=== PATIENT | female | born 1960 | race Hispanic/Latino ===

== ENCOUNTER → 2024-01-07 | Emergency (ER) | payer SELFPAY ==
[~2024-01-07] MED LIST: FAMOTIDINE 20 MG/2 ML VIAL IV ONE; KETOROLAC 30 MG/ML INJ ONE; MAGNESIUM SULFATE 1 gm IVPB 1 GM/100 ML BAG IV ONE; MORPHINE 2 MG/ML SYR ONE; MORPHINE 4 MG/ML SYR ONE; NA CHLORIDE 0.9% 1,000 ML ONE; ONDANSETRON 4 MG/2 ML VIAL ONE; TAMSULOSIN 0.4 MG SR CAP ONE
--- OUTSIDE RECORDS SUMMARY | 2024-01-07 06:02 | XMS REPORT | Continuity of Care Document ---
Author Name Unknown Address [address] [facility] [address] [place] [address] [facility] Address [address] [facility] [address] [place] [address] Care Team Providers Care Charge Account Clerk Name Role Phone Marquis Hanson Primary Care Physician CASSI LANE Attending Clinician Unavailab CASSI Moore Admitting Clinician Unavailab le Allergies, Adverse Reactions, Alerts Allergy Name Allergy Type Status Severity Reaction(s) Onset Date Inactive Date Treating Clinician Comments Source NO KNOWN ALLERGIE S Drug Class Active [facility] Medications Ordered Medication Name Filled Medication Name Start Date Stop Date Current Medication? Ordering Clinician Indication Dosage Frequency Signature (SIG) Comments Components Source Cipro 500 mg tablet 11-27 00:00: 00 No 1mg Cipro 500 mg tablet 11-27 00:00: 00 No 1mg Cipro 500 mg tablet 11-27 00:00: 00 No 1mg Vital Signs Vital Name Observation Time Observation Value Comments S ource BP Systolic 2022-08-13 08:18:00 148 mm[Hg] BP Diastolic 2022-08-13 08:18:00 82 mm[Hg] Weight Measured 2022-08-13 08:18:00 126.40 pounds Height Measured 2022-08-13 08:18:00 58.00 inches Body Temperature 2022-08-13 08:18:00 97.40 degrees Heart Rate 2022-08-13 08:18:00 67.00 /min Respiratory Rate 2022-08-13 08:18:00 16.00 /min BP Systolic 2022-06-17 08:19:00 132 mm[Hg] BP Diastolic 2022-06-17 08:19:00 84 mm[Hg] Weight Measured 2022-06-17 08:19:00 126.40 pounds Height Measured 2022-06-17 08:19:00 58.00 inches Body Temperature 2022-06-17 08:19:00 98.30 degrees Heart Rate 2022-06-17 08:19:00 59.00 /min Respiratory Rate 2022-06-17 08:19:00 18.00 /min BP Systolic 2022-06-10 08:55:00 143 mm[Hg] BP Diastolic 2022-06-10 08:55:00 81 mm[Hg] Weight Measured 2022-06-10 08:55:00 126.80 pounds Height Measured 2022-06-10 08:55:00 58.00 inches Body Temperature 2022-06-10 08:55:00 98.10 degrees Heart Rate 2022-06-10 08:55:00 60.00 /min Respiratory Rate 2022-06-10 08:55:00 18.00 /min BP Systolic 2019-09-01 13:21:00 122 mm[Hg] BP Diastolic 2019-09-01 13:21:00 82 mm[Hg] Weight Measured 2019-09-01 13:21:00 126.80 pounds Height Measured 2019-09-01 13:21:00 58.00 inches Body Temperature 2019-09-01 13:21:00 98.60 degrees Heart Rate 2019-09-01 13:21:00 95.00 /min Respiratory Rate 2019-09-01 13:21:00 16.00 /min BP Systolic 2018-05-13 14:37:00 125 mm[Hg] BP Diastolic 2018-05-13 14:37:00 77 mm[Hg] Weight Measured 2018-05-13 14:37:00 130.00 pounds Height Measured 2018-05-13 14:37:00 58.00 inches Body Temperature 2018-05-13 14:37:00 98.30 degrees Heart Rate 2018-05-13 14:37:00 73.00 /min Respiratory Rate 2018-05-13 14:37:00 16.00 /min BP Systolic 2017-04-23 14:34:00 BP Diastolic 2017-04-23 14:34:00 Weight Measured 2017-04-23 14:34:00 Height Measured 2017-04-23 14:34:00 Body Temperature 2017-04-23 14:34:00 Heart Rate 2017-04-23 14:34:00 Respiratory Rate 2017-04-23 14:34:00 BP Systolic 2017-04-23 10:40:00 124 mm[Hg] BP Diastolic 2017-04-23 10:40:00 77 mm[Hg] Weight Measured 2017-04-23 10:40:00 120.00 pounds Height Measured 2017-04-23 10:40:00 58.00 inches Body Temperature 2017-04-23 10:40:00 98.00 degrees Heart Rate 2017-04-23 10:40:00 69.00 /min Respiratory Rate 2017-04-23 10:40:00 16.00 /min BP Systolic 2015-12-01 16:01:00 BP Diastolic 2015-12-01 16:01:00 Weight Measured 2015-12-01 16:01:00 Height Measured 2015-12-01 16:01:00 Body Temperature 2015-12-01 16:01:00 Heart Rate 2015-12-01 16:01:00 Respiratory Rate 2015-12-01 16:01:00 BP Systolic 2015-11-27 10:24:00 131 mm[Hg] BP Diastolic 2015-11-27 10:24:00 81 mm[Hg] Weight Measured 2015-11-27 10:24:00 118.40 pounds Height Measured 2015-11-27 10:24:00 58.00 inches Body Temperature 2015-11-27 10:24:00 16.00 degrees Heart Rate 2015-11-27 10:24:00 67.00 /min Respiratory Rate 2015-11-27 10:24:00 17.00 /min BP Systolic 2015-11-27 10:07:00 131 mm[Hg] BP Diastolic 2015-11-27 10:07:00 81 mm[Hg] Weight Measured 2015-11-27 10:07:00 118.40 pounds Height Measured 2015-11-27 10:07:00 58.00 inches Body Temperature 2015-11-27 10:07:00 16.00 degrees Heart Rate 2015-11-27 10:07:00 67.00 /min Respiratory Rate 2015-11-27 10:07:00 17.00 /min Respiratory Rate 2015-09-26 11:26:00 14.00 /min BP Systolic 2015-09-26 11:26:00 129 mm[Hg] BP Diastolic 2015-09-26 11:26:00 79 mm[Hg] Weight Measured 2015-09-26 11:26:00 118.20 pounds Height Measured 2015-09-26 11:26:00 58.00 inches Body Temperature 2015-09-26 11:26:00 97.90 degrees Heart Rate 2015-09-26 11:26:00 62.00 /min BP Systolic 2015-09-12 11:09:00 126 mm[Hg] BP Diastolic 2015-09-12 11:09:00 74 mm[Hg] Weight Measured 2015-09-12 11:09:00 117.00 pounds Height Measured 2015-09-12 11:09:00 58.00 inches Body Temperature 2015-09-12 11:09:00 97.70 degrees Heart Rate 2015-09-12 11:09:00 59.00 /min Respiratory Rate 2015-09-12 11:09:00 14.00 /min Procedures Procedure Date / Time Performed Performing Clinicia n Source 51015 Ecg Routine Ecg W/leas t 12 Lds W/i r 2017-04-23 00:00:00 Plan of Care Planned Activity Planned Date Details Comments Source Goal Plan of Care Note [code = 65338-1] Goal Plan of Care Note [code = 76664-4] Goal Plan of Care Note [code = 50554-7] Goal Plan of Care Note [code = 64423-3] Goal Plan of Care Note [code = 10456-3] Goal Plan of Care Note [code = 28477-7] Goal Plan of Care Note [code = 63241-9] Goal Plan of Care Note [code = 83858-7] Goal Plan of Care Note [code = 39882-7] Goal Plan of Care Note [code = 54463-1] Goal Plan of Care Note [code = 32475-4] Goal Plan of Care Note [code = 54381-6] Goal Plan of Care Note [code = 49630-6] Goal Plan of Care Note [code = 91809-4] Goal Plan of Care Note [code = 26796-3] Goal Plan of Care Note [code = 83415-4] Goal Plan of Care Note [code = 81766-6] Goal Plan of Care Note [code = 30941-0] Goal Plan of Care Note [code = 03388-9] Goal Plan of Care Note [code = 76041-6] Goal Plan of Care Note [code = 37132-5] Goal Plan of Care Note [code = 38269-9] Goal Plan of Care Note [code = 17055-7] Goal Plan of Care Note [code = 88228-2] Goal Plan of Care Note [code = 28819-4] Goal Plan of Care Note [code = 38163-0] Goal Plan of Care Note [code = 03822-1] Goal Plan of Care Note [code = 51137-2] Goal Plan of Care Note [code = 42026-2] Goal Plan of Care Note [code = 68301-8] Goal Plan of Care Note [code = 24180-5] Goal Plan of Care Note [code = 72229-9] Goal Plan of Care Note [code = 47431-7] Goal Plan of Care Note [code = 02991-4] Goal Plan of Care Note [code = 58169-5] Goal Plan of Care Note [code = 95659-2] Goal Plan of Care Note [code = 64229-5] Goal Plan of Care Note [code = 03649-4] Goal Plan of Care Note [code = 29918-3] Goal Plan of Care Note [code = 72592-8] Goal Plan of Care Note [code = 39836-9] Goal Plan of Care Note [code = 00574-6] Goal Plan of Care Note [code = 35689-0] Goal Plan of Care Note [code = 77359-9] Goal Plan of Care Note [code = 51972-7] Goal Plan of Care Note [code = 83690-7] Goal Plan of Care Note [code = 72271-3] Goal Plan of Care Note [code = 47316-7] Goal Plan of Care Note [code = 33871-1] Goal Plan of Care Note [code = 51121-8] Goal Plan of Care Note [code = 79045-3] Goal Plan of Care Note [code = 97980-0] Goal Plan of Care Note [code = 76106-6] Goal Plan of Care Note [code = 31327-9] Goal Plan of Care Note [code = 13097-4] Goal Plan of Care Note [code = 38699-2] Goal Plan of Care Note [code = 49193-0] Goal Plan of Care Note [code = 79943-9] Goal Plan of Care Note [code = 14663-9] Goal Plan of Care Note [code = 50332-5] Goal Plan of Care Note [code = 57118-9] Encounters Start Date/Time End Date/Time Encounter Type Admission Type Attending [facility] Care Department Encounter ID Source 2021-09-22 09:38:[address] [facility] [id number] [facility] 2023-12-03 09:29:44 2023-12-03 09:29:[address] [facility] [id number] 2023-08-18 16:13:12 2023-08-18 16:13:[address] [facility] [id number] 2023-06-30 16:03:46 2023-06-30 16:03:[address] [facility] [id number] 2023-02-05 10:37:25 2023-02-05 10:37:[address] [facility] [id number] 2022-09-05 08:39:48 2022-09-05 08:39:[address] [facility] [id number] 2022-08-13 00:00:00 2022-08-13 00:00:00 Outpatient Visit [id number] 2022-06-17 00:00:00 2022-06-17 00:00:00 Outpatient Visit [id number] 2022-06-10 00:00:00 2022-06-10 00:00:00 Outpatient Visit [id number] 2020-11-07 10:15:00 2020-11-07 10:15:00 Outpatient CASSI VASQUEZ [facility] [id number] [facility] 2020-10-30 12:15:00 2020-10-30 12:15:00 Outpatient CASSI VASQUEZ [facility] [id number] [facility] Results Test Description Test Time Test Comments Results Result Co mments Source LIPID [id number] 04:16:05* Test Item Value Reference Range Interpretation Comme nts CHOLESTEROL (test code = 2210) 279 MG/DL <200 H TRIGLYCERIDES (test code = 2232) 97 MG/DL <150 HDL CHOLESTEROL (test code = 2220) 74 MG/DL >39 CALC LDL CHOL (test code = 2237) 183 MG/DL <100 H NOTE: CALCULATED LDL IS BASED ON EVELYNE-BERNAL METHOD WHICHINCLUDES ADJUSTABLE TRIGLYCERIDE:VLDL CHOLESTEROL RATIO.THIS FACTOR VARIES BY MEASURED TRIGLYCERIDE AND NON-HDLCHOLESTEROL CONCENTRATIONS WITH INCREASED CALCULATED LDL SEENIN HIGHER TRIGLYCERIDE OR LOWER NON-HDL SPECIMENS. FOR MOREINFORMATION, SEE CLIENT ANNOUNCEMENT AT [email or web address] RISK RATIO LDL/HDL (test code = 2238) 2.47 RATIO <3.22 UNLESS OTHERW ISE INDICATED, ALL TESTING PERFORMED AT [facility] [address] [place] [address] AUTOMOTIVE ACCESSORY INSTALLER: MARION HEARN M.D. [place] NUMBER [id number] [facility] [place]. [id number] HEMOGLOBIN [id number] 02:43:04* Test Item Value Reference Range Interpretation Comme nts HEMOGLOBIN A1c (test code = 81594) 5.9 % 4.2-5.6 H [employer]IATION GUIDELINES FOR HGB A1C: PREDIABETES/INCREASED RISK . . . . . . . 5.7-6.4% DIAGNOSIS OF DIABETES . . . . . . . . . >=6.5% WITH CONFIRMATION OR APPROPRIATE SYMPTOMS NOTE: ASSAY MAY BE AFFECTED BY HEMOGLOBINOPATHIES (SICKLE CELL ANEMIA, S-C DISEASE, OTHERS) OR ARTIFICIALLY LOWERED BY DECREASED RED CELL SURVIVAL (HEMOLYTIC ANEMIAS, BLOOD LOSS, ETC.). CONSIDER ALTERNATE TESTING OR LABORATORY CONSULTATION. CBC W/AUTO DIFF WITH [id number] 01:49:31* Test Item Value Reference Range Interpretation Comme nts WBC (test code = 1001) 6.2 K/UL 3.5-11.0 RBC (test code = 1002) 4.77 M/UL 3.80-5.40 HEMOGLOBIN (test code = 1003) 14.2 G/DL 11.5-15.5 HEMATOCRIT (test code = 1004) 42.4 % 34.0-45.0 MCV (test code = 1005) 88.9 fL 80.0-99.0 MCH (test code = 1006) 29.8 PG 25.0-33.0 MCHC (test code = 1007) 33.5 G/DL 31.0-36.0 RDW (test code = 1038) 13.3 % 11.5-15.0 NEUTROPHILS (test code = 1008) 59.0 % LYMPHOCYTES (test code = 1010) 29.3 % MONOCYTES (test code = 1011) 9.3 % EOSINOPHILS (test code = 1012) 1.4 % BASOPHILS (test code = 1013) 0.8 % IMMATURE GRANULOCYTES (test code = 1036) 0.2 % NUCLEATED RBCS (test code = 1065) 0.0 /100 WBC'S See_Comment [Automated messa ge] The system which generated this result transmitted reference range: 0.0. The reference range was not used to interpret this result as normal/abnormal. PLATELET COUNT (test code = 1015) 294 K/UL 130-400 ABSOLUTE NEUTROPHILS (test code = 1066) 3.68 K/UL 1.50-7.50 ABSOLUTE LYMPHOCYTES (test code = 1067) 1.83 K/UL 1.00-4.00 ABSOLUTE MONOCYTES (test code = 1068) 0.58 K/UL 0.20-1.00 ABSOLUTE EOSINOPHILS (test code = 1040) 0.09 K/UL 0.00-0.50 ABSOLUTE BASOPHILS (test code = 1069) 0.05 K/UL 0.00-0.20 ABS IMMATURE GRANULOCYTES (test code = 1020) 0.01 K/UL 0.00-0.10 ABS NUCLEATED RBCS (test code = 01044) 0.00 K/UL 0.00-0.11 TSH, THIRD [id number] 06:43:44* Test Item Value Reference Range Interpretation Comme nts TSH, THIRD GENERATION (test code = 2821) 2.280 UIU/ML 0.400-4.100 [facility] has impo rtant pathology staff changes effective 01/22/2023. New pathology staff will provide uninterrupted, excellent patient care and clinical consultation. See URL: [email or web address]. UNLESS OTHERWISE INDICATED, ALL TESTING PERFORMED AT [facility] [address] [place] [address] AUTOMOTIVE ACCESSORY INSTALLER: MARION HEARN M.D. CLIA NUMBER [id number] [facility] [place]. [id number] COMPREHENSIVE METABOLIC [id number] 04:25:56* Test Item Value Reference Range Interpretation Comme nts GLUCOSE (test code = 2217) 95 MG/DL 70-99 BUN (test code = 2208) 18 MG/DL 8-23 CREATININE (test code = 2214) 0.69 MG/DL 0.60-1.30 eGFR (2020 CKD-EPI) (test code = 28744) 98 ML/MIN/1.73 >60 CALC BUN/CREAT (test code = 2235) 26 RATIO 6-28 SODIUM (test code = 2231) 142 MEQ/L 133-146 POTASSIUM (test code = 2228) 4.2 MEQ/L 3.5-5.4 CHLORIDE (test code = 2215) 106 MEQ/L 95-107 CARBON DIOXIDE (test code = 2206) 24 MEQ/L 19-31 CALCIUM (test code = 2209) 9.8 MG/DL 8.5-10.5 PROTEIN, TOTAL (test code = 2229) 7.0 G/DL 6.1-8.3 ALBUMIN (test code = 2201) 4.2 G/DL 3.5-5.2 CALC GLOBULIN (test code = 2240) 2.8 G/DL 1.9-3.7 CALC A/G RATIO (test code = 2234) 1.5 RATIO 1.0-2.6 BILIRUBIN, TOTAL (test code = 2207) 0.3 MG/DL See_Comment [Automated me ssage] The system which generated this result transmitted reference range: <=1.2. The reference range was not used to interpret this result as normal/abnormal. ALKALINE PHOSPHATASE (test code = 2204) 84 U/L 40-140 AST (test code = 2218) 21 U/L 9-40 ALT (test code = 2219) 14 U/L 5-40 LIPID [id number] 04:25:56* Test Item Value Reference Range Interpretation Comme nts CHOLESTEROL (test code = 2210) 231 MG/DL <200 H TRIGLYCERIDES (test code = 2232) 149 MG/DL <150 HDL CHOLESTEROL (test code = 2220) 59 MG/DL >39 CALC LDL CHOL (test code = 2237) 144 MG/DL <100 H NOTE: CALCULATED LDL IS BASED ON EVELYNE-BERNAL METHOD WHICHINCLUDES ADJUSTABLE TRIGLYCERIDE:VLDL CHOLESTEROL RATIO.THIS FACTOR VARIES BY MEASURED TRIGLYCERIDE AND NON-HDLCHOLESTEROL CONCENTRATIONS WITH INCREASED CALCULATED LDL SEENIN HIGHER TRIGLYCERIDE OR LOWER NON-HDL SPECIMENS. FOR MOREINFORMATION, SEE CLIENT ANNOUNCEMENT AT [email or web address] RISK RATIO LDL/HDL (test code = 2238) 2.44 RATIO <3.22 HEMOGLOBIN [id number] 03:04:52* Test Item Value Reference Range Interpretation Comme nts HEMOGLOBIN A1c (test code = 65933) 6.0 % 4.2-5.6 H [employer] S ASSOCIATION GUIDELINES FOR HGB A1C: PREDIABETES/INCREASED RISK . . . . . . . 5.7-6.4% DIAGNOSIS OF DIABETES . . . . . . . . . >=6.5% WITH CONFIRMATION OR APPROPRIATE SYMPTOMS NOTE: ASSAY MAY BE AFFECTED BY HEMOGLOBINOPATHIES (SICKLE CELL ANEMIA, S-C DISEASE, OTHERS) OR ARTIFICIALLY LOWERED BY DECREASED RED CELL SURVIVAL (HEMOLYTIC ANEMIAS, BLOOD LOSS, ETC.). CONSIDER ALTERNATE TESTING OR LABORATORY CONSULTATION. CBC W/AUTO DIFF WITH [id number] 02:27:22* Test Item Value Reference Range Interpretation Comme nts WBC (test code = 1001) 6.0 K/UL 3.5-11.0 RBC (test code = 1002) 4.62 M/UL 3.80-5.40 HEMOGLOBIN (test code = 1003) 13.2 G/DL 11.5-15.5 HEMATOCRIT (test code = 1004) 40.1 % 34.0-45.0 MCV (test code = 1005) 86.8 fL 80.0-99.0 MCH (test code = 1006) 28.6 PG 25.0-33.0 MCHC (test code = 1007) 32.9 G/DL 31.0-36.0 RDW (test code = 1038) 13.0 % 11.5-15.0 NEUTROPHILS (test code = 1008) 57.6 % LYMPHOCYTES (test code = 1010) 29.5 % MONOCYTES (test code = 1011) 10.0 % EOSINOPHILS (test code = 1012) 2.2 % BASOPHILS (test code = 1013) 0.7 % IMMATURE GRANULOCYTES (test code = 1036) 0.0 % NUCLEATED RBCS (test code = 1065) 0.0 /100 WBC'S See_Comment [Automated messa ge] The system which generated this result transmitted reference range: 0.0. The reference range was not used to interpret this result as normal/abnormal. PLATELET COUNT (test code = 1015) 255 K/UL 130-400 ABSOLUTE NEUTROPHILS (test code = 1066) 3.47 K/UL 1.50-7.50 ABSOLUTE LYMPHOCYTES (test code = 1067) 1.77 K/UL 1.00-4.00 ABSOLUTE MONOCYTES (test code = 1068) 0.60 K/UL 0.20-1.00 ABSOLUTE EOSINOPHILS (test code = 1040) 0.13 K/UL 0.00-0.50 ABSOLUTE BASOPHILS (test code = 1069) 0.04 K/UL 0.00-0.20 ABS IMMATURE GRANULOCYTES (test code = 1020) 0.00 K/UL 0.00-0.10 ABS NUCLEATED RBCS (test code = 39884) 0.00 K/UL 0.00-0.11 SCR MAMM BILATERAL BEATRIS CAD [id number] 09:21:11 Name: Rubia DOB: 1960 Sex: F - SCR MAMM BILATERAL BEATRIS CAD DIGITALBILATERAL DIGITAL SCREENING MAMMOGRAM 3D/2D WITH CAD: 10/04/2022LINICAL: Asymptomatic. Digital breast tomosynthesis was performed in addition to routine CC and MLO views. Current mammographic images were evaluated by [employer] CAD (computer-aided detection) software. Comparison is made to exams dated 07/24/2018 mammogram, 06/06/2017 mammogram, and 06/12/2015 mammogram - [facility]. The tissue of both breasts is heterogeneously dense. This may lower the sensitivity of mammography. There are benign appearing calcifications in the right breast. No suspicious mass, architectural distortion, malignant type calcification, or lymph node abnormality detected. Breast architecture is stable compared to prior exams.IMPRESSION: BENIGNThere is no mammographic evidence of malignancy.Resume annual screening mammography in one year. (10/05/2023) Chapo Fitzpatrick M.D. et/penrad:10/09/2022 09:21:11 Anesthetist: Julia Dubose MM, RT(R)(M), [facility] sent: BIRADS 1-2 Normal Mammogram BI-RADS: 2 BenignSCR MAMM BILATERAL BEATRIS CAD [id number] 09:21:11 Name: Rubia : 1960 Sex: F - SCR MAMM BILATERAL BEATRIS CAD DIGITALBILATERAL DIGITAL SCREENING MAMMOGRAM 3D/2D WITH CAD: 10/04/2022LINICAL: Asymptomatic. Digital breast tomosynthesis was performed in addition to routine CC and MLO views. Current mammographic images were evaluated by [employer] CAD (computer-aided detection) software. Comparison is made to exams dated 07/24/2018 mammogram, 06/06/2017 mammogram, and 06/12/2015 mammogram - [facility]. The tissue of both breasts is heterogeneously dense. This may lower the sensitivity of mammography. There are benign appearing calcifications in the right breast. No suspicious mass, architectural distortion, malignant type calcification, or lymph node abnormality detected. Breast architecture is stable compared to prior exams.IMPRESSION: BENIGNThere is no mammographic evidence of malignancy.Resume annual screening mammography in one year. (10/05/2023) Chapo Fitzpatrick M.D. et/penrad:10/09/2022 09:21:11 Anesthetist: Julia Dubose MM, RT(R)(M), [facility] sent: BIRADS 1-2 Normal Mammogram BI-RADS: 2 BenignPAP TEST, THINPREP, [id number] 09:25:57* Test Item Value Reference Range Interpretation Comme nts SOURCE: (test code = 8001) Cervical/Endo cervical SLIDES: (test code = 8011) 1 LMP: (test code = 8021) 11/24/2000 SPECIMEN ADEQUACY: (test code = 44501) (NOTE) Satisfactory for evaluation. Endocervical cells/transformation zone component present. INTERPRETATION: (test code = 36334) NILM/NO EPITH. ABNORMALITY;S EE BELOW ---- NEGATIVE FOR INTRAEPITHELIAL LESION OR MALIGNANCY (NILM) - HEAD CHARRER: (test code = 8101) DUGLAS ODELL( CP)IAC LOCATION: (test code = 57010) (NOTE) Specimens proces sed and interpreted at [facility], [address] [place] [address], , CLIA: [id number] CPT: (test code = 8140) (NOTE) 85867 UNLESS OTH ERWISE INDICATED, COMPUTER AIDED AND HEAD CHARRER SCREENING PERFORMED. The Pap test is a screening test with an inherent, but low probability of error. Your patient should be reminded to consult you immediately if she experiences any suspicious signs or symptoms, regardless of her Pap test result. An alternate report format containing images or consolidated prior Pap history is available as applicable. HPV HIGH RISK WITH GENOTYPE, [id number] 09:20:38* Test Item Value Reference Range Interpretation Comme nts HPV HIGH RISK INTERP (test code = 16467) NEGATIVE NEGATIVE HPV 16 (test code = 20366) NEGATIVE HPV 18 (test code = 27605) NEGATIVE HPV, HR, OTHER GENOTYPES (test code = 25719) NEGATIVE Testing methodol ogy is real-time PCR utilizing hydrolysis probes with the Patricia Rossana 4800 system. The test individually detects genotypes 16 and 18, as well as the other 12 high risk types (31,33,35,39,45,51,52,56 ,58,59,66,68). The expected result is negative. A negative result does not rule out the presence of HPV not included in the genotype set, a low level of infection or specimen sampling error. UNLESS OTHERWISE INDICATED, ALL TESTING PERFORMED [facility] [address] [place] [address] AUTOMOTIVE ACCESSORY INSTALLER: JOSSUE JASSO M.D. CLIA NUMBER [id number] [facility] [place] [id number] PAP TEST, THINPREP, [id number] 00:00:00* Test Item Value Reference Range Interpretation Comme nts SOURCE: (test code = 8001) Cervical/Endocervical SLIDES: (test code = 8011) 1 LMP: (test code = 8021) 11/24/2000 SPECIMEN ADEQUACY: (test code = 00176) (NOTE) INTERPRETATION: (test code = 47667) NILM/NO EPITH. ABNORMALITY;SEE BELOW HEAD CHARRER: (test code = 8101) DUGLAS ODELL(ASCP)[facility] LOCATION: (test code = 18267) (NOTE) CPT: (test code = 8140) (NOTE) PAP TEST, THINPREP, [id number] 00:00:00* Test Item Value Reference Range Interpretation Comme nts SOURCE: (test code = 8001) Cervical/Endocervical SLIDES: (test code = 8011) 1 LMP: (test code = 8021) 11/24/2000 SPECIMEN ADEQUACY: (test code = 39974) (NOTE) INTERPRETATION: (test code = 14913) NILM/NO EPITH. ABNORMALITY;SEE BELOW HEAD CHARRER: (test code = 8101) DUGLAS ODELL(ASCP)[facility] LOCATION: (test code = 51776) (NOTE) CPT: (test code = 8140) (NOTE) HPV HIGH RISK WITH GENOTYPE, [id number] 00:00:00* Test Item Value Reference Range Interpretation Comme nts HPV HIGH RISK INTERP (test c ode = 56791) NEGATIVE HPV 16 (test code = 86011) NEGATIVE HPV 18 (test code = 71218) NEGATIVE HPV, HR, OTHER GENOTYPES (te st code = 03130) NEGATIVE HPV HIGH RISK WITH GENOTYPE, [id number] 00:00:00* Test Item Value Reference Range Interpretation Comme nts HPV HIGH RISK INTERP (test c ode = 24468) NEGATIVE HPV 16 (test code = 29192) NEGATIVE HPV 18 (test code = 63243) NEGATIVE HPV, HR, OTHER GENOTYPES (te st code = 48226) NEGATIVE LIPID [id number] 06:54:33* Test Item Value Reference Range Interpretation Comme nts CHOLESTEROL (test code = 2210) 231 MG/DL <200 H TRIGLYCERIDES (test code = 2232) 137 MG/DL <150 HDL CHOLESTEROL (test code = 2220) 57 MG/DL >39 CALC LDL CHOL (test code = 2237) 148 MG/DL <100 H NOTE: CALCULATED LDL IS BASED ON EVELYNE-BERNAL METHOD WHICHINCLUDES ADJUSTABLE TRIGLYCERIDE:VLDL CHOLESTEROL RATIO.THIS FACTOR VARIES BY MEASURED TRIGLYCERIDE AND NON-HDLCHOLESTEROL CONCENTRATIONS WITH INCREASED CALCULATED LDL SEENIN HIGHER TRIGLYCERIDE OR LOWER NON-HDL SPECIMENS. FOR MOREINFORMATION, SEE CLIENT ANNOUNCEMENT AT [email or web address] RISK RATIO LDL/HDL (test code = 2238) 2.60 RATIO <3.22 COMPREHENSIVE METABOLIC [id number] 06:54:33* Test Item Value Reference Range Interpretation Comme nts GLUCOSE (test code = 2216) 87 MG/DL 70-99 BUN (test code = 2207) 13 MG/DL 8-23 CREATININE (test code = 2213) 0.76 MG/DL 0.60-1.30 eGFR (2020 CKD-EPI) (test code = 01943) 89 ML/MIN/1.73 >60 CALC BUN/CREAT (test code = 2234) 17 RATIO 6-28 SODIUM (test code = 2230) 144 MEQ/L 133-146 POTASSIUM (test code = 2227) 4.4 MEQ/L 3.5-5.4 CHLORIDE (test code = 2214) 108 MEQ/L 95-107 H CARBON DIOXIDE (test code = 2205) 28 MEQ/L 19-31 CALCIUM (test code = 2208) 10.2 MG/DL 8.5-10.5 PROTEIN, TOTAL (test code = 2228) 7.3 G/DL 6.1-8.3 ALBUMIN (test code = 2200) 4.2 G/DL 3.5-5.2 CALC GLOBULIN (test code = 2239) 3.1 G/DL 1.9-3.7 CALC A/G RATIO (test code = 2233) 1.4 RATIO 1.0-2.6 BILIRUBIN, TOTAL (test code = 2206) 0.5 MG/DL See_Comment [Automated me ssage] The system which generated this result transmitted reference range: <=1.2. The reference range was not used to interpret this result as normal/abnormal. ALKALINE PHOSPHATASE (test code = 2203) 89 U/L 40-140 AST (test code = 2217) 22 U/L 9-40 ALT (test code = 9) 15 U/L 5-40 VITAMIN D, 25 [id number] 06:36:49* Test Item Value Reference Range Interpretation Comme [facility] VITAMIN D, 25 OH (test code = 4958) 46 NG/ML SEE BELOW NOTE: 25-HYDR OXYVITAMIN D ASSAY INCLUDES 25-HYDROXYVITAMIN D2 AND D3. METHODOLOGY IS CHEMILUMINESCENT IMMUNOASSAY. INTERPRETIVE RANGES PEDIATRIC (<17 YEARS) . . . . . . . . . . . NG/ML 20-100ADULT: INSUFFICIENT . . . . . . . . . . . . . . NG/ML <20 SUBOPTIMAL . . . . . . . . . . . . . . . NG/ML 20-29 OPTIMAL . . . . . . . . . . . . . . . . . NG/ML 30-100 VITAMIN [id number] 06:11:37* Test Item Value Reference Range Interpretation Comme nts VITAMIN B-12 (test code = 2840) 614 PG/ML 200-950 UNLESS OTHERWISE INDICATED, ALL TESTING PERFORMED [facility] [employer] [address] [place] [address] AUTOMOTIVE ACCESSORY INSTALLER: JOSSUE JASSO M.D. CLIA NUMBER [id number] [facility] [place]. [id number] HEMOGLOBIN [id number] 05:04:46* Test Item Value Reference Range Interpretation Comme nts HEMOGLOBIN A1c (test code = 22202) 6.0 % 4.2-5.6 H CBC W/AUTO DIFF WITH [id number] 04:16:47* Test Item Value Reference Range Interpretation Comme nts WBC (test code = 1001) 5.6 K/UL 3.5-11.0 RBC (test code = 1002) 4.62 M/UL 3.80-5.40 HEMOGLOBIN (test code = 1003) 13.3 G/DL 11.5-15.5 HEMATOCRIT (test code = 1004) 39.5 % 34.0-45.0 MCV (test code = 1005) 85.5 fL 80.0-99.0 MCH (test code = 1006) 28.8 PG 25.0-33.0 MCHC (test code = 1007) 33.7 G/DL 31.0-36.0 RDW (test code = 1038) 13.3 % 11.5-15.0 NEUTROPHILS (test code = 1008) 54.1 % LYMPHOCYTES (test code = 1010) 32.4 % MONOCYTES (test code = 1011) 11.2 % EOSINOPHILS (test code = 1012) 1.6 % BASOPHILS (test code = 1013) 0.5 % IMMATURE GRANULOCYTES (test code = 1036) 0.2 % NUCLEATED RBCS (test code = 1065) 0.0 /100 WBC'S See_Comment [Automated 3D Formsa ge] The system which generated this result transmitted reference range: 0.0. The reference range was not used to interpret this result as normal/abnormal. PLATELET COUNT (test code = 1015) 285 K/UL 130-400 ABSOLUTE NEUTROPHILS (test code = 1066) 3.00 K/UL 1.50-7.50 ABSOLUTE LYMPHOCYTES (test code = 1067) 1.80 K/UL 1.00-4.00 ABSOLUTE MONOCYTES (test code = 1068) 0.62 K/UL 0.20-1.00 ABSOLUTE EOSINOPHILS (test code = 1040) 0.09 K/UL 0.00-0.50 ABSOLUTE BASOPHILS (test code = 1069) 0.03 K/UL 0.00-0.20 ABS IMMATURE GRANULOCYTES (test code = 1020) 0.01 K/UL 0.00-0.10 ABS NUCLEATED RBCS (test code = 88592) 0.00 K/UL 0.00-0.11 CBC W/AUTO [id number] 00:00:00* Test Item Value Reference Range Interpretation Comme nts WBC (test code = 1001) 5.6 K/UL RBC (test code = 1002) 4.62 M/UL HEMOGLOBIN (test code = 1003) 13.3 G/DL HEMATOCRIT (test code = 1004) 39.5 % MCV (test code = 1005) 85.5 fL MCH (test code = 1006) 28.8 PG MCHC (test code = 1007) 33.7 G/DL RDW (test code = 1038) 13.3 % NEUTROPHILS (test code = 1008) 54.1 % LYMPHOCYTES (test code = 1010) 32.4 % MONOCYTES (test code = 1011) 11.2 % EOSINOPHILS (test code = 1012) 1.6 % BASOPHILS (test code = 1013) 0.5 % IMMATURE GRANULOCYTES (test code = 1036) 0.2 % NUCLEATED RBCS (test code = 1065) 0.0 /100WBC'S PLATELET COUNT (test code = 1015) 285 K/UL ABSOLUTE NEUTROPHILS (test c ode = 1066) 3.00 K/UL ABSOLUTE LYMPHOCYTES (test c ode = 1067) 1.80 K/UL ABSOLUTE MONOCYTES (test cod e = 1068) 0.62 K/UL ABSOLUTE EOSINOPHILS (test c ode = 1040) 0.09 K/UL ABSOLUTE BASOPHILS (test cod e = 1069) 0.03 K/UL ABS IMMATURE GRANULOCYTES (t est code = 1020) 0.01 K/UL ABS NUCLEATED RBCS (test cod e = 58426) 0.00 K/UL CBC W/AUTO [id number] 00:00:00* Test Item Value Reference Range Interpretation Comme nts WBC (test code = 1001) 5.6 K/UL RBC (test code = 1002) 4.62 M/UL HEMOGLOBIN (test code = 1003) 13.3 G/DL HEMATOCRIT (test code = 1004) 39.5 % MCV (test code = 1005) 85.5 fL MCH (test code = 1006) 28.8 PG MCHC (test code = 1007) 33.7 G/DL RDW (test code = 1038) 13.3 % NEUTROPHILS (test code = 1008) 54.1 % LYMPHOCYTES (test code = 1010) 32.4 % MONOCYTES (test code = 1011) 11.2 % EOSINOPHILS (test code = 1012) 1.6 % BASOPHILS (test code = 1013) 0.5 % IMMATURE GRANULOCYTES (test code = 1036) 0.2 % NUCLEATED RBCS (test code = 1065) 0.0 /100WBC'S PLATELET COUNT (test code = 1015) 285 K/UL ABSOLUTE NEUTROPHILS (test c ode = 1066) 3.00 K/UL ABSOLUTE LYMPHOCYTES (test c ode = 1067) 1.80 K/UL ABSOLUTE MONOCYTES (test cod e = 1068) 0.62 K/UL ABSOLUTE EOSINOPHILS (test c ode = 1040) 0.09 K/UL ABSOLUTE BASOPHILS (test cod e = 1069) 0.03 K/UL ABS IMMATURE GRANULOCYTES (t est code = 1020) 0.01 K/UL ABS NUCLEATED RBCS (test cod e = 81638) 0.00 K/UL LIPID [id number] 00:00:00* Test Item Value Reference Range Interpretation Comme nts CHOLESTEROL (test code = 2210) 231 MG/DL TRIGLYCERIDES (test code = 2232) 137 MG/DL HDL CHOLESTEROL (test code = 2220) 57 MG/DL CALC LDL CHOL (test code = 2237) 148 MG/DL RISK RATIO LDL/HDL (test cod e = 2238) 2.60 RATIO HEMOGLOBIN [id number] 00:00:00* Test Item Value Reference Range Interpretation Comme [facility] HEMOGLOBIN A1c (test code = 54753) 6.0 % HEMOGLOBIN [id number] 00:00:00* Test Item Value Reference Range Interpretation Comme nts HEMOGLOBIN A1c (test code = 32386) 6.0 % COMPREHENSIVE METABOLIC [id number] 00:00:00* Test Item Value Reference Range Interpretation Comme nts GLUCOSE (test code = 2217) 87 MG/DL BUN (test code = 2208) 13 MG/DL CREATININE (test code = 2214) 0.76 MG/DL eGFR (2020 CKD-EPI) (test co de = 53702) 89 ML/MIN/1.73 CALC BUN/CREAT (test code = 2235) 17 RATIO SODIUM (test code = 2231) 144 MEQ/L POTASSIUM (test code = 2228) 4.4 MEQ/L CHLORIDE (test code = 2215) 108 MEQ/L CARBON DIOXIDE (test code = 2206) 28 MEQ/L CALCIUM (test code = 2209) 10.2 MG/DL PROTEIN, TOTAL (test code = 2229) 7.3 G/DL ALBUMIN (test code = 2201) 4.2 G/DL CALC GLOBULIN (test code = 2240) 3.1 G/DL CALC A/G RATIO (test code = 2234) 1.4 RATIO BILIRUBIN, TOTAL (test code = 2207) 0.5 MG/DL ALKALINE PHOSPHATASE (test code = 2204) 89 U/L AST (test code = 2218) 22 U/L ALT (test code = 2219) 15 U/L VITAMIN D, 25 [id number] 00:00:00* Test Item Value Reference Range Interpretation Comme [facility] VITAMIN D, 25 OH (test code = 4958) 46 NG/ML VITAMIN [id number] 00:00:00* Test Item Value Reference Range Interpretation Comme [facility] VITAMIN B-12 (test code = 2840) 614 PG/ML VITAMIN [id number] 00:00:00* Test Item Value Reference Range Interpretation Comme [facility] VITAMIN B-12 (test code = 2840) 614 PG/ML CBC W/AUTO [id number] 00:00:00* Test Item Value Reference Range Interpretation Comme [facility] WBC (test code = 1001) 5.6 K/UL RBC (test code = 1002) 4.62 M/UL HEMOGLOBIN (test code = 1003) 13.3 G/DL HEMATOCRIT (test code = 1004) 39.5 % MCV (test code = 1005) 85.5 fL MCH (test code = 1006) 28.8 PG MCHC (test code = 1007) 33.7 G/DL RDW (test code = 1038) 13.3 % NEUTROPHILS (test code = 1008) 54.1 % LYMPHOCYTES (test code = 1010) 32.4 % MONOCYTES (test code = 1011) 11.2 % EOSINOPHILS (test code = 1012) 1.6 % BASOPHILS (test code = 1013) 0.5 % IMMATURE GRANULOCYTES (test code = 1036) 0.2 % NUCLEATED RBCS (test code = 1065) 0.0 /100WBC'S PLATELET COUNT (test code = 1015) 285 K/UL ABSOLUTE NEUTROPHILS (test c ode = 1066) 3.00 K/UL ABSOLUTE LYMPHOCYTES (test c ode = 1067) 1.80 K/UL ABSOLUTE MONOCYTES (test cod e = 1068) 0.62 K/UL ABSOLUTE EOSINOPHILS (test c ode = 1040) 0.09 K/UL ABSOLUTE BASOPHILS (test cod e = 1069) 0.03 K/UL ABS IMMATURE GRANULOCYTES (t est code = 1020) 0.01 K/UL ABS NUCLEATED RBCS (test cod e = 81263) 0.00 K/UL CBC W/AUTO [id number] 00:00:00* Test Item Value Reference Range Interpretation Comme nts WBC (test code = 1001) 5.6 K/UL RBC (test code = 1002) 4.62 M/UL HEMOGLOBIN (test code = 1003) 13.3 G/DL HEMATOCRIT (test code = 1004) 39.5 % MCV (test code = 1005) 85.5 fL MCH (test code = 1006) 28.8 PG MCHC (test code = 1007) 33.7 G/DL RDW (test code = 1038) 13.3 % NEUTROPHILS (test code = 1008) 54.1 % LYMPHOCYTES (test code = 1010) 32.4 % MONOCYTES (test code = 1011) 11.2 % EOSINOPHILS (test code = 1012) 1.6 % BASOPHILS (test code = 1013) 0.5 % IMMATURE GRANULOCYTES (test code = 1036) 0.2 % NUCLEATED RBCS (test code = 1065) 0.0 /100WBC'S PLATELET COUNT (test code = 1015) 285 K/UL ABSOLUTE NEUTROPHILS (test c ode = 1066) 3.00 K/UL ABSOLUTE LYMPHOCYTES (test c ode = 1067) 1.80 K/UL ABSOLUTE MONOCYTES (test cod e = 1068) 0.62 K/UL ABSOLUTE EOSINOPHILS (test c ode = 1040) 0.09 K/UL ABSOLUTE BASOPHILS (test cod e = 1069) 0.03 K/UL ABS IMMATURE GRANULOCYTES (t est code = 1020) 0.01 K/UL ABS NUCLEATED RBCS (test cod e = 51731) 0.00 K/UL CBC W/AUTO [id number] 00:00:00* Test Item Value Reference Range Interpretation Comme nts WBC (test code = 1001) 5.6 K/UL RBC (test code = 1002) 4.62 M/UL HEMOGLOBIN (test code = 1003) 13.3 G/DL HEMATOCRIT (test code = 1004) 39.5 % MCV (test code = 1005) 85.5 fL MCH (test code = 1006) 28.8 PG MCHC (test code = 1007) 33.7 G/DL RDW (test code = 1038) 13.3 % NEUTROPHILS (test code = 1008) 54.1 % LYMPHOCYTES (test code = 1010) 32.4 % MONOCYTES (test code = 1011) 11.2 % EOSINOPHILS (test code = 1012) 1.6 % BASOPHILS (test code = 1013) 0.5 % IMMATURE GRANULOCYTES (test code = 1036) 0.2 % NUCLEATED RBCS (test code = 1065) 0.0 /100WBC'S PLATELET COUNT (test code = 1015) 285 K/UL ABSOLUTE NEUTROPHILS (test c ode = 1066) 3.00 K/UL ABSOLUTE LYMPHOCYTES (test c ode = 1067) 1.80 K/UL ABSOLUTE MONOCYTES (test cod e = 1068) 0.62 K/UL ABSOLUTE EOSINOPHILS (test c ode = 1040) 0.09 K/UL ABSOLUTE BASOPHILS (test cod e = 1069) 0.03 K/UL ABS IMMATURE GRANULOCYTES (t est code = 1020) 0.01 K/UL ABS NUCLEATED RBCS (test cod e = 08962) 0.00 K/UL LIPID [id number] 00:00:00* Test Item Value Reference Range Interpretation Comme nts CHOLESTEROL (test code = 2210) 231 MG/DL TRIGLYCERIDES (test code = 2232) 137 MG/DL HDL CHOLESTEROL (test code = 2220) 57 MG/DL CALC LDL CHOL (test code = 2237) 148 MG/DL RISK RATIO LDL/HDL (test cod e = 2238) 2.60 RATIO LIPID [id number] 00:00:00* Test Item Value Reference Range Interpretation Comme nts CHOLESTEROL (test code = 2210) 231 MG/DL TRIGLYCERIDES (test code = 2232) 137 MG/DL HDL CHOLESTEROL (test code = 2220) 57 MG/DL CALC LDL CHOL (test code = 2237) 148 MG/DL RISK RATIO LDL/HDL (test cod e = 2238) 2.60 RATIO HEMOGLOBIN [id number] 00:00:00* Test Item Value Reference Range Interpretation Comme nts HEMOGLOBIN A1c (test code = 34704) 6.0 % HEMOGLOBIN [id number] 00:00:00* Test Item Value Reference Range Interpretation Comme nts HEMOGLOBIN A1c (test code = 50569) 6.0 % HEMOGLOBIN [id number] 00:00:00* Test Item Value Reference Range Interpretation Comme nts HEMOGLOBIN A1c (test code = 15530) 6.0 % COMPREHENSIVE METABOLIC [id number] 00:00:00* Test Item Value Reference Range Interpretation Comme nts GLUCOSE (test code = 2217) 87 MG/DL BUN (test code = 2208) 13 MG/DL CREATININE (test code = 2214) 0.76 MG/DL eGFR (2020 CKD-EPI) (test co de = 55218) 89 ML/MIN/1.73 CALC BUN/CREAT (test code = 2235) 17 RATIO SODIUM (test code = 2231) 144 MEQ/L POTASSIUM (test code = 2228) 4.4 MEQ/L CHLORIDE (test code = 2215) 108 MEQ/L CARBON DIOXIDE (test code = 2206) 28 MEQ/L CALCIUM (test code = 2209) 10.2 MG/DL PROTEIN, TOTAL (test code = 2229) 7.3 G/DL ALBUMIN (test code = 2201) 4.2 G/DL CALC GLOBULIN (test code = 2240) 3.1 G/DL CALC A/G RATIO (test code = 2234) 1.4 RATIO BILIRUBIN, TOTAL (test code = 2207) 0.5 MG/DL ALKALINE PHOSPHATASE (test code = 2204) 89 U/L AST (test code = 2218) 22 U/L ALT (test code = 2219) 15 U/L COMPREHENSIVE METABOLIC [id number] 00:00:00* Test Item Value Reference Range Interpretation Comme nts GLUCOSE (test code = 2217) 87 MG/DL BUN (test code = 2208) 13 MG/DL CREATININE (test code = 2214) 0.76 MG/DL eGFR (2020 CKD-EPI) (test co de = 06702) 89 ML/MIN/1.73 CALC BUN/CREAT (test code = 2235) 17 RATIO SODIUM (test code = 2231) 144 MEQ/L POTASSIUM (test code = 2228) 4.4 MEQ/L CHLORIDE (test code = 2215) 108 MEQ/L CARBON DIOXIDE (test code = 2206) 28 MEQ/L CALCIUM (test code = 2209) 10.2 MG/DL PROTEIN, TOTAL (test code = 2229) 7.3 G/DL ALBUMIN (test code = 2201) 4.2 G/DL CALC GLOBULIN (test code = 2240) 3.1 G/DL CALC A/G RATIO (test code = 2234) 1.4 RATIO BILIRUBIN, TOTAL (test code = 2207) 0.5 MG/DL ALKALINE PHOSPHATASE (test code = 2204) 89 U/L AST (test code = 2218) 22 U/L ALT (test code = 2219) 15 U/L VITAMIN D, 25 [id number] 00:00:00* Test Item Value Reference Range Interpretation Comme [facility] VITAMIN D, 25 OH (test code = 4958) 46 NG/ML VITAMIN D, 25 [id number] 00:00:00* Test Item Value Reference Range Interpretation Comme [facility] VITAMIN D, 25 OH (test code = 4958) 46 NG/ML VITAMIN [id number] 00:00:00* Test Item Value Reference Range Interpretation Comme [facility] VITAMIN B-12 (test code = 2840) 614 PG/ML VITAMIN [id number] 00:00:00* Test Item Value Reference Range Interpretation Comme nts VITAMIN B-12 (test code = 2840) 614 PG/ML VITAMIN [id number] 00:00:00* Test Item Value Reference Range Interpretation Comme nts VITAMIN B-12 (test code = 2840) 614 PG/ML PAP TEST, THINPREP, [id number] 00:00:00* Test Item Value Reference Range Interpretation Comme nts SOURCE: (test code = 8001) Cervical/Endocervical SLIDES: (test code = 8011) 1 LMP: (test code = 8021) SEE NOTE SPECIMEN ADEQUACY: (test code = 77077) (NOTE) INTERPRETATION: (test code = 81981) NILM/NO EPITH. ABNORMALITY;SEE BELOW HEAD CHARRER: (test code = 8101) Luma Ames LOCATION: (test code = 90465) (NOTE) CPT: (test code = 8140) (NOTE) PAP TEST, THINPREP, [id number] 00:00:00* Test Item Value Reference Range Interpretation Comme [facility] SOURCE: (test code = 8001) Cervical/Endocervical SLIDES: (test code = 8011) 1 LMP: (test code = 8021) SEE NOTE SPECIMEN ADEQUACY: (test code = 36233) (NOTE) INTERPRETATION: (test code = 49123) NILM/NO EPITH. ABNORMALITY;SEE BELOW HEAD CHARRER: (test code = 8101) Luma Ames LOCATION: (test code = 23500) (NOTE) CPT: (test code = 8140) (NOTE) PAP TEST, THINPREP, [id number] 00:00:00* Test Item Value Reference Range Interpretation Comme [facility] SOURCE: (test code = 8001) Cervical/Endocervical SLIDES: (test code = 8011) 1 LMP: (test code = 8021) SEE NOTE SPECIMEN ADEQUACY: (test code = 04625) (NOTE) INTERPRETATION: (test code = 02853) NILM/NO EPITH. ABNORMALITY;SEE BELOW HEAD CHARRER: (test code = 8101) Luma Ames LOCATION: (test code = 56699) (NOTE) CPT: (test code = 8140) (NOTE) PAP TEST, THINPREP, [id number] 00:00:00* Test Item Value Reference Range Interpretation Comme [facility] SOURCE: (test code = 8001) Cervical/Endocervical SLIDES: (test code = 8011) 1 LMP: (test code = 8021) SEE NOTE SPECIMEN ADEQUACY: (test code = 15037) (NOTE) INTERPRETATION: (test code = 69272) NILM/NO EPITH. ABNORMALITY;SEE BELOW HEAD CHARRER: (test code = 8101) Luma Ames LOCATION: (test code = 71384) (NOTE) CPT: (test code = 8140) (NOTE) HPV HIGH RISK WITH GENOTYPE, [id number] 00:00:00* Test Item Value Reference Range Interpretation Comme [facility] HPV HIGH RISK INTERP (test c ode = 09149) NEGATIVE HPV 16 (test code = 86308) NEGATIVE HPV 18 (test code = 88996) NEGATIVE HPV, HR, OTHER GENOTYPES (te st code = 63247) NEGATIVE HIV AB/AG COMBO RFLX [id number] 00:00:00* Test Item Value Reference Range Interpretation Comme [facility] HIV 1/2 4TH GEN, RFLX CONF ( test code = 3514) NON-REACTIVE HPV HIGH RISK WITH GENOTYPE, [id number] 00:00:00* Test Item Value Reference Range Interpretation Comme [facility] HPV HIGH RISK INTERP (test c ode = 04210) NEGATIVE HPV 16 (test code = 26536) NEGATIVE HPV 18 (test code = 40741) NEGATIVE HPV, HR, OTHER GENOTYPES (te st code = 94856) NEGATIVE ACUTE HEPATITIS [id number] 00:00:00* Test Item Value Reference Range Interpretation Comme [facility] HEPATITIS A IgM (test code = 75170) NON-REACTIVE HEPATITIS B CORE IgM (test c ode = 4644) NON-REACTIVE HEPATITIS B SURF AG (test co de = 2739) NON-REACTIVE HEPATITIS C ANTIBODY (test c ode = 4675) NON-REACTIVE HCV INDEX (test code = 74503) 0.22 INTERPRETATION HEPATITIS A: (test code = 2552) (NOTE) INTERPRETATION HEPATITIS B: (test code = 85152) (NOTE) INTERPRETATION HEPATITIS C: (test code = 94991) (NOTE) GC AND CHLAMYDIA AMPLIFIED, [id number] 00:00:00* Test Item Value Reference Range Interpretation Comme [facility] GONORRHEA, TMA (test code = 93436) NEGATIVE CHLAMYDIA, TMA (test code = 09039) NEGATIVE ACUTE HEPATITIS [id number] 00:00:00* Test Item Value Reference Range Interpretation Comme nts HEPATITIS A IgM (test code = 12699) NON-REACTIVE HEPATITIS B CORE IgM (test c ode = 4644) NON-REACTIVE HEPATITIS B SURF AG (test co de = 2739) NON-REACTIVE HEPATITIS C ANTIBODY (test c ode = 4675) NON-REACTIVE HCV INDEX (test code = 13723) 0.22 INTERPRETATION HEPATITIS A: (test code = 2552) (NOTE) INTERPRETATION HEPATITIS B: (test code = 44167) (NOTE) INTERPRETATION HEPATITIS C: (test code = 29615) (NOTE) [id number] 00:00:00* Test Item Value Reference Range Interpretation Comme nts RPR RESULT (test code = 3501) NON-REACTIVE RPR TITER (test code = 3500) NOT INDIC. TITER [id number] 00:00:00* Test Item Value Reference Range Interpretation Comme nts RPR RESULT (test code = 3501) NON-REACTIVE RPR TITER (test code = 3500) NOT INDIC. TITER LIPID [id number] 00:00:00* Test Item Value Reference Range Interpretation Comme nts CHOLESTEROL (test code = 2210) 228 MG/DL TRIGLYCERIDES (test code = 2232) 118 MG/DL HDL CHOLESTEROL (test code = 2220) 63 MG/DL CALC LDL CHOL (test code = 2237) 141 MG/DL RISK RATIO LDL/HDL (test cod e = 2238) 2.24 RATIO HEMOGLOBIN [id number] 00:00:00* Test Item Value Reference Range Interpretation Comme nts HEMOGLOBIN A1c (test code = 68058) 5.9 % HEMOGLOBIN [id number] 00:00:00* Test Item Value Reference Range Interpretation Comme nts HEMOGLOBIN A1c (test code = 50797) 5.9 % COMPREHENSIVE METABOLIC [id number] 00:00:00* Test Item Value Reference Range Interpretation Comme nts GLUCOSE (test code = 2217) 82 MG/DL BUN (test code = 2208) 14 MG/DL CREATININE (test code = 2214) 0.65 MG/DL eGFR AMER. (test cod e = 89067) 113 ML/MIN/1.73 eGFR NON- AMER. (test code = 45431) 98 ML/MIN/1.73 CALC BUN/CREAT (test code = 2235) 22 RATIO SODIUM (test code = 2231) 144 MEQ/L POTASSIUM (test code = 2228) 3.9 MEQ/L CHLORIDE (test code = 2215) 107 MEQ/L CARBON DIOXIDE (test code = 2206) 26 MEQ/L CALCIUM (test code = 2209) 10.0 MG/DL PROTEIN, TOTAL (test code = 2229) 7.1 G/DL ALBUMIN (test code = 2201) 4.2 G/DL CALC GLOBULIN (test code = 2240) 2.9 G/DL CALC A/G RATIO (test code = 2234) 1.4 RATIO BILIRUBIN, TOTAL (test code = 2207) 0.3 MG/DL ALKALINE PHOSPHATASE (test code = 2204) 81 U/L AST (test code = 2218) 24 U/L ALT (test code = 2219) 15 U/L [id number] 00:00:00* Test Item Value Reference Range Interpretation Comme nts RPR RESULT (test code = 3501) NON-REACTIVE RPR TITER (test code = 3500) NOT INDIC. TITER [id number] 00:00:00* Test Item Value Reference Range Interpretation Comme nts RPR RESULT (test code = 3501) NON-REACTIVE RPR TITER (test code = 3500) NOT INDIC. TITER HIV AB/AG COMBO RFLX [id number] 00:00:00* Test Item Value Reference Range Interpretation Comme nts HIV 1/2 4TH GEN, RFLX CONF ( test code = 3514) NON-REACTIVE HIV AB/AG COMBO RFLX [id number] 00:00:00* Test Item Value Reference Range Interpretation Comme nts HIV 1/2 4TH GEN, RFLX CONF ( test code = 3514) NON-REACTIVE HPV HIGH RISK WITH GENOTYPE, [id number] 00:00:00* Test Item Value Reference Range Interpretation Comme nts HPV HIGH RISK INTERP (test c ode = 35006) NEGATIVE HPV 16 (test code = 55610) NEGATIVE HPV 18 (test code = 48395) NEGATIVE HPV, HR, OTHER GENOTYPES (te st code = 94266) NEGATIVE HPV HIGH RISK WITH GENOTYPE, [id number] 00:00:00* Test Item Value Reference Range Interpretation Comme nts HPV HIGH RISK INTERP (test c ode = 41529) NEGATIVE HPV 16 (test code = 12615) NEGATIVE HPV 18 (test code = 64440) NEGATIVE HPV, HR, OTHER GENOTYPES (te st code = 00979) NEGATIVE ACUTE HEPATITIS [id number] 00:00:00* Test Item Value Reference Range Interpretation Comme nts HEPATITIS A IgM (test code = 39060) NON-REACTIVE HEPATITIS B CORE IgM (test c ode = 4644) NON-REACTIVE HEPATITIS B SURF AG (test co de = 2739) NON-REACTIVE HEPATITIS C ANTIBODY (test c ode = 4675) NON-REACTIVE HCV INDEX (test code = 47088) 0.22 INTERPRETATION HEPATITIS A: (test code = 2552) (NOTE) INTERPRETATION HEPATITIS B: (test code = 71254) (NOTE) INTERPRETATION HEPATITIS C: (test code = 21547) (NOTE) ACUTE HEPATITIS [id number] 00:00:00* Test Item Value Reference Range Interpretation Comme nts HEPATITIS A IgM (test code = 11518) NON-REACTIVE HEPATITIS B CORE IgM (test c ode = 4644) NON-REACTIVE HEPATITIS B SURF AG (test co de = 2739) NON-REACTIVE HEPATITIS C ANTIBODY (test c ode = 4675) NON-REACTIVE HCV INDEX (test code = 90239) 0.22 INTERPRETATION HEPATITIS A: (test code = 2552) (NOTE) INTERPRETATION HEPATITIS B: (test code = 46601) (NOTE) INTERPRETATION HEPATITIS C: (test code = 79089) (NOTE) [id number] 00:00:00* Test Item Value Reference Range Interpretation Comme nts RPR RESULT (test code = 3501) NON-REACTIVE RPR TITER (test code = 3500) NOT INDIC. TITER GC AND CHLAMYDIA AMPLIFIED, [id number] 00:00:00* Test Item Value Reference Range Interpretation Comme nts GONORRHEA, TMA (test code = 32551) NEGATIVE CHLAMYDIA, TMA (test code = 58960) NEGATIVE GC AND CHLAMYDIA AMPLIFIED, [id number] 00:00:00* Test Item Value Reference Range Interpretation Comme nts GONORRHEA, TMA (test code = 51175) NEGATIVE CHLAMYDIA, TMA (test code = 45923) NEGATIVE GC AND CHLAMYDIA AMPLIFIED, [id number] 00:00:00* Test Item Value Reference Range Interpretation Comme nts GONORRHEA, TMA (test code = 32976) NEGATIVE CHLAMYDIA, TMA (test code = 78123) NEGATIVE [id number] 00:00:00* Test Item Value Reference Range Interpretation Comme nts RPR RESULT (test code = 3501) NON-REACTIVE RPR TITER (test code = 3500) NOT INDIC. TITER [id number] 00:00:00* Test Item Value Reference Range Interpretation Comme nts RPR RESULT (test code = 3501) NON-REACTIVE RPR TITER (test code = 3500) NOT INDIC. TITER LIPID [id number] 00:00:00* Test Item Value Reference Range Interpretation Comme nts CHOLESTEROL (test code = 2210) 228 MG/DL TRIGLYCERIDES (test code = 2232) 118 MG/DL HDL CHOLESTEROL (test code = 2220) 63 MG/DL CALC LDL CHOL (test code = 2237) 141 MG/DL RISK RATIO LDL/HDL (test cod e = 2238) 2.24 RATIO LIPID [id number] 00:00:00* Test Item Value Reference Range Interpretation Comme nts CHOLESTEROL (test code = 2210) 228 MG/DL TRIGLYCERIDES (test code = 2232) 118 MG/DL HDL CHOLESTEROL (test code = 2220) 63 MG/DL CALC LDL CHOL (test code = 2237) 141 MG/DL RISK RATIO LDL/HDL (test cod e = 2238) 2.24 RATIO HEMOGLOBIN [id number] 00:00:00* Test Item Value Reference Range Interpretation Comme nts HEMOGLOBIN A1c (test code = 22700) 5.9 % HEMOGLOBIN [id number] 00:00:00* Test Item Value Reference Range Interpretation Comme nts HEMOGLOBIN A1c (test code = 58336) 5.9 % HEMOGLOBIN [id number] 00:00:00* Test Item Value Reference Range Interpretation Comme nts HEMOGLOBIN A1c (test code = 58118) 5.9 % COMPREHENSIVE METABOLIC [id number] 00:00:00* Test Item Value Reference Range Interpretation Comme nts GLUCOSE (test code = 2217) 82 MG/DL BUN (test code = 2208) 14 MG/DL CREATININE (test code = 2214) 0.65 MG/DL eGFR AMER. (test cod e = 19236) 113 ML/MIN/1.73 eGFR NON- AMER. (test code = 56002) 98 ML/MIN/1.73 CALC BUN/CREAT (test code = 2235) 22 RATIO SODIUM (test code = 2231) 144 MEQ/L POTASSIUM (test code = 2228) 3.9 MEQ/L CHLORIDE (test code = 2215) 107 MEQ/L CARBON DIOXIDE (test code = 2206) 26 MEQ/L CALCIUM (test code = 2209) 10.0 MG/DL PROTEIN, TOTAL (test code = 2229) 7.1 G/DL ALBUMIN (test code = 2201) 4.2 G/DL CALC GLOBULIN (test code = 2240) 2.9 G/DL CALC A/G RATIO (test code = 2234) 1.4 RATIO BILIRUBIN, TOTAL (test code = 2207) 0.3 MG/DL ALKALINE PHOSPHATASE (test code = 2204) 81 U/L AST (test code = 2218) 24 U/L ALT (test code = 2219) 15 U/L COMPREHENSIVE METABOLIC [id number] 00:00:00* Test Item Value Reference Range Interpretation Comme nts GLUCOSE (test code = 2217) 82 MG/DL BUN (test code = 2208) 14 MG/DL CREATININE (test code = 2214) 0.65 MG/DL eGFR AMER. (test cod e = 38715) 113 ML/MIN/1.73 eGFR NON- AMER. (test code = 68843) 98 ML/MIN/1.73 CALC BUN/CREAT (test code = 2235) 22 RATIO SODIUM (test code = 2231) 144 MEQ/L POTASSIUM (test code = 2228) 3.9 MEQ/L CHLORIDE (test code = 2215) 107 MEQ/L CARBON DIOXIDE (test code = 2206) 26 MEQ/L CALCIUM (test code = 2209) 10.0 MG/DL PROTEIN, TOTAL (test code = 2229) 7.1 G/DL ALBUMIN (test code = 2201) 4.2 G/DL CALC GLOBULIN (test code = 2240) 2.9 G/DL CALC A/G RATIO (test code = 2234) 1.4 RATIO BILIRUBIN, TOTAL (test code = 2207) 0.3 MG/DL ALKALINE PHOSPHATASE (test code = 2204) 81 U/L AST (test code = 2218) 24 U/L ALT (test code = 2219) 15 U/L LIPID [id number] 00:00:00* Test Item Value Reference Range Interpretation Comme nts CHOLESTEROL (test code = 2210) 228 MG/DL TRIGLYCERIDES (test code = 2232) 118 MG/DL HDL CHOLESTEROL (test code = 2220) 63 MG/DL CALC LDL CHOL (test code = 2237) 141 MG/DL RISK RATIO LDL/HDL (test cod e = 2238) 2.24 RATIO HEMOGLOBIN [id number] 00:00:00* Test Item Value Reference Range Interpretation Comme nts HEMOGLOBIN A1c (test code = 20026) 5.9 % HEMOGLOBIN [id number] 00:00:00* Test Item Value Reference Range Interpretation Comme nts HEMOGLOBIN A1c (test code = 46267) 5.9 % COMPREHENSIVE METABOLIC [id number] 00:00:00* Test Item Value Reference Range Interpretation Comme nts GLUCOSE (test code = 2217) 82 MG/DL BUN (test code = 2208) 14 MG/DL CREATININE (test code = 2214) 0.65 MG/DL eGFR AMER. (test cod e = 47286) 113 ML/MIN/1.73 eGFR NON- AMER. (test code = 66450) 98 ML/MIN/1.73 CALC BUN/CREAT (test code = 2235) 22 RATIO SODIUM (test code = 2231) 144 MEQ/L POTASSIUM (test code = 2228) 3.9 MEQ/L CHLORIDE (test code = 2215) 107 MEQ/L CARBON DIOXIDE (test code = 2206) 26 MEQ/L CALCIUM (test code = 2209) 10.0 MG/DL PROTEIN, TOTAL (test code = 2229) 7.1 G/DL ALBUMIN (test code = 2201) 4.2 G/DL CALC GLOBULIN (test code = 2240) 2.9 G/DL CALC A/G RATIO (test code = 2234) 1.4 RATIO BILIRUBIN, TOTAL (test code = 2207) 0.3 MG/DL ALKALINE PHOSPHATASE (test code = 2204) 81 U/L AST (test code = 2218) 24 U/L ALT (test code = 2219) 15 U/L HIV AB/AG COMBO RFLX [id number] 00:00:00* Test Item Value Reference Range Interpretation Comme nts HIV 1/2 4TH GEN, RFLX CONF ( test code = 3514) NON-REACTIVE COMPREHENSIVE METABOLIC [id number] 00:00:00* Test Item Value Reference Range Interpretation Comme nts GLUCOSE (test code = 2217) 97 MG/DL BUN (test code = 2208) 16 MG/DL CREATININE (test code = 2214) 0.59 MG/DL eGFR AMER. (test cod e = 27606) 118 ML/MIN/1.73 eGFR NON- AMER. (test code = 54127) 102 ML/MIN/1.73 CALC BUN/CREAT (test code = 2235) 27 RATIO SODIUM (test code = 2231) 141 MEQ/L POTASSIUM (test code = 2228) 4.3 MEQ/L CHLORIDE (test code = 2215) 103 MEQ/L CARBON DIOXIDE (test code = 2206) 27 MEQ/L CALCIUM (test code = 2209) 10.2 MG/DL PROTEIN, TOTAL (test code = 2229) 7.1 G/DL ALBUMIN (test code = 2201) 4.1 G/DL CALC GLOBULIN (test code = 2240) 3.0 G/DL CALC A/G RATIO (test code = 2234) 1.4 RATIO BILIRUBIN, TOTAL (test code = 2207) 0.2 MG/DL ALKALINE PHOSPHATASE (test code = 2204) 97 U/L AST (test code = 2218) 26 U/L ALT (test code = 2219) 20 U/L LIPID [id number] 00:00:00* Test Item Value Reference Range Interpretation Comme nts CHOLESTEROL (test code = 2210) 254 MG/DL TRIGLYCERIDES (test code = 2232) 309 MG/DL HDL CHOLESTEROL (test code = 2220) 61 MG/DL CALC LDL CHOL (test code = 2237) 131 MG/DL RISK RATIO LDL/HDL (test cod e = 2238) 2.15 RATIO COMPREHENSIVE METABOLIC [id number] 00:00:00* Test Item Value Reference Range Interpretation Comme nts GLUCOSE (test code = 2217) 97 MG/DL BUN (test code = 2208) 16 MG/DL CREATININE (test code = 2214) 0.59 MG/DL eGFR AMER. (test cod e = 13274) 118 ML/MIN/1.73 eGFR NON- AMER. (test code = 53130) 102 ML/MIN/1.73 CALC BUN/CREAT (test code = 2235) 27 RATIO SODIUM (test code = 2231) 141 MEQ/L POTASSIUM (test code = 2228) 4.3 MEQ/L CHLORIDE (test code = 2215) 103 MEQ/L CARBON DIOXIDE (test code = 2206) 27 MEQ/L CALCIUM (test code = 2209) 10.2 MG/DL PROTEIN, TOTAL (test code = 2229) 7.1 G/DL ALBUMIN (test code = 2201) 4.1 G/DL CALC GLOBULIN (test code = 2240) 3.0 G/DL CALC A/G RATIO (test code = 2234) 1.4 RATIO BILIRUBIN, TOTAL (test code = 2207) 0.2 MG/DL ALKALINE PHOSPHATASE (test code = 2204) 97 U/L AST (test code = 2218) 26 U/L ALT (test code = 2219) 20 U/L LIPID [id number] 00:00:00* Test Item Value Reference Range Interpretation Comme nts CHOLESTEROL (test code = 2210) 254 MG/DL TRIGLYCERIDES (test code = 2232) 309 MG/DL HDL CHOLESTEROL (test code = 2220) 61 MG/DL CALC LDL CHOL (test code = 2237) 131 MG/DL RISK RATIO LDL/HDL (test cod e = 2238) 2.15 RATIO CBC W/AUTO [id number] 00:00:00* Test Item Value Reference Range Interpretation Comme nts WBC (test code = 1001) 6.1 K/UL RBC (test code = 1002) 4.66 M/UL HEMOGLOBIN (test code = 1003) 13.3 G/DL HEMATOCRIT (test code = 1004) 40.1 % MCV (test code = 1005) 86.1 fL MCH (test code = 1006) 28.5 PG MCHC (test code = 1007) 33.2 G/DL RDW (test code = 1038) 13.5 % NEUTROPHILS (test code = 1008) 61.7 % LYMPHOCYTES (test code = 1010) 25.9 % MONOCYTES (test code = 1011) 9.8 % EOSINOPHILS (test code = 1012) 2.1 % BASOPHILS (test code = 1013) 0.5 % PLATELET COUNT (test code = 1015) 167 K/UL CBC W/AUTO [id number] 00:00:00* Test Item Value Reference Range Interpretation Comme nts WBC (test code = 1001) 6.1 K/UL RBC (test code = 1002) 4.66 M/UL HEMOGLOBIN (test code = 1003) 13.3 G/DL HEMATOCRIT (test code = 1004) 40.1 % MCV (test code = 1005) 86.1 fL MCH (test code = 1006) 28.5 PG MCHC (test code = 1007) 33.2 G/DL RDW (test code = 1038) 13.5 % NEUTROPHILS (test code = 1008) 61.7 % LYMPHOCYTES (test code = 1010) 25.9 % MONOCYTES (test code = 1011) 9.8 % EOSINOPHILS (test code = 1012) 2.1 % BASOPHILS (test code = 1013) 0.5 % PLATELET COUNT (test code = 1015) 167 K/UL HEMOGLOBIN [id number] 00:00:00* Test Item Value Reference Range Interpretation Comme nts HEMOGLOBIN A1c (test code = 32928) 5.8 % HEMOGLOBIN [id number] 00:00:00* Test Item Value Reference Range Interpretation Comme nts HEMOGLOBIN A1c (test code = 21759) 5.8 % [id number] 00:00:00* Test Item Value Reference Range Interpretation Comme nts TSH, THIRD GENERATION (test code = 2821) 1.970 UIU/ML [id number] 00:00:00* Test Item Value Reference Range Interpretation Comme nts TSH, THIRD GENERATION (test code = 2821) 1.970 UIU/ML CBC W/AUTO [id number] 00:00:00* Test Item Value Reference Range Interpretation Comme nts WBC (test code = 1001) 6.1 K/UL RBC (test code = 1002) 4.66 M/UL HEMOGLOBIN (test code = 1003) 13.3 G/DL HEMATOCRIT (test code = 1004) 40.1 % MCV (test code = 1005) 86.1 fL MCH (test code = 1006) 28.5 PG MCHC (test code = 1007) 33.2 G/DL RDW (test code = 1038) 13.5 % NEUTROPHILS (test code = 1008) 61.7 % LYMPHOCYTES (test code = 1010) 25.9 % MONOCYTES (test code = 1011) 9.8 % EOSINOPHILS (test code = 1012) 2.1 % BASOPHILS (test code = 1013) 0.5 % PLATELET COUNT (test code = 1015) 167 K/UL COMPREHENSIVE METABOLIC [id number] 00:00:00* Test Item Value Reference Range Interpretation Comme nts GLUCOSE (test code = 2217) 97 MG/DL BUN (test code = 2208) 16 MG/DL CREATININE (test code = 2214) 0.59 MG/DL eGFR AMER. (test cod e = 86674) 118 ML/MIN/1.73 eGFR NON- AMER. (test code = 43266) 102 ML/MIN/1.73 CALC BUN/CREAT (test code = 2235) 27 RATIO SODIUM (test code = 2231) 141 MEQ/L POTASSIUM (test code = 2228) 4.3 MEQ/L CHLORIDE (test code = 2215) 103 MEQ/L CARBON DIOXIDE (test code = 2206) 27 MEQ/L CALCIUM (test code = 2209) 10.2 MG/DL PROTEIN, TOTAL (test code = 2229) 7.1 G/DL ALBUMIN (test code = 2201) 4.1 G/DL CALC GLOBULIN (test code = 2240) 3.0 G/DL CALC A/G RATIO (test code = 2234) 1.4 RATIO BILIRUBIN, TOTAL (test code = 2207) 0.2 MG/DL ALKALINE PHOSPHATASE (test code = 2204) 97 U/L AST (test code = 2218) 26 U/L ALT (test code = 2219) 20 U/L COMPREHENSIVE METABOLIC [id number] 00:00:00* Test Item Value Reference Range Interpretation Comme nts GLUCOSE (test code = 2217) 97 MG/DL BUN (test code = 2208) 16 MG/DL CREATININE (test code = 2214) 0.59 MG/DL eGFR AMER. (test cod e = 75731) 118 ML/MIN/1.73 eGFR NON- AMER. (test code = 84268) 102 ML/MIN/1.73 CALC BUN/CREAT (test code = 2235) 27 RATIO SODIUM (test code = 2231) 141 MEQ/L POTASSIUM (test code = 2228) 4.3 MEQ/L CHLORIDE (test code = 2215) 103 MEQ/L CARBON DIOXIDE (test code = 2206) 27 MEQ/L CALCIUM (test code = 2209) 10.2 MG/DL PROTEIN, TOTAL (test code = 2229) 7.1 G/DL ALBUMIN (test code = 2201) 4.1 G/DL CALC GLOBULIN (test code = 2240) 3.0 G/DL CALC A/G RATIO (test code = 2234) 1.4 RATIO BILIRUBIN, TOTAL (test code = 2207) 0.2 MG/DL ALKALINE PHOSPHATASE (test code = 2204) 97 U/L AST (test code = 2218) 26 U/L ALT (test code = 2219) 20 U/L LIPID [id number] 00:00:00* Test Item Value Reference Range Interpretation Comme nts CHOLESTEROL (test code = 2210) 254 MG/DL TRIGLYCERIDES (test code = 2232) 309 MG/DL HDL CHOLESTEROL (test code = 2220) 61 MG/DL CALC LDL CHOL (test code = 2237) 131 MG/DL RISK RATIO LDL/HDL (test cod e = 2238) 2.15 RATIO LIPID [id number] 00:00:00* Test Item Value Reference Range Interpretation Comme nts CHOLESTEROL (test code = 2210) 254 MG/DL TRIGLYCERIDES (test code = 2232) 309 MG/DL HDL CHOLESTEROL (test code = 2220) 61 MG/DL CALC LDL CHOL (test code = 2237) 131 MG/DL RISK RATIO LDL/HDL (test cod e = 2238) 2.15 RATIO CBC W/AUTO [id number] 00:00:00* Test Item Value Reference Range Interpretation Comme nts WBC (test code = 1001) 6.1 K/UL RBC (test code = 1002) 4.66 M/UL HEMOGLOBIN (test code = 1003) 13.3 G/DL HEMATOCRIT (test code = 1004) 40.1 % MCV (test code = 1005) 86.1 fL MCH (test code = 1006) 28.5 PG MCHC (test code = 1007) 33.2 G/DL RDW (test code = 1038) 13.5 % NEUTROPHILS (test code = 1008) 61.7 % LYMPHOCYTES (test code = 1010) 25.9 % MONOCYTES (test code = 1011) 9.8 % EOSINOPHILS (test code = 1012) 2.1 % BASOPHILS (test code = 1013) 0.5 % PLATELET COUNT (test code = 1015) 167 K/UL CBC W/AUTO [id number] 00:00:00* Test Item Value Reference Range Interpretation Comme nts WBC (test code = 1001) 6.1 K/UL RBC (test code = 1002) 4.66 M/UL HEMOGLOBIN (test code = 1003) 13.3 G/DL HEMATOCRIT (test code = 1004) 40.1 % MCV (test code = 1005) 86.1 fL MCH (test code = 1006) 28.5 PG MCHC (test code = 1007) 33.2 G/DL RDW (test code = 1038) 13.5 % NEUTROPHILS (test code = 1008) 61.7 % LYMPHOCYTES (test code = 1010) 25.9 % MONOCYTES (test code = 1011) 9.8 % EOSINOPHILS (test code = 1012) 2.1 % BASOPHILS (test code = 1013) 0.5 % PLATELET COUNT (test code = 1015) 167 K/UL CBC W/AUTO [id number] 00:00:00* Test Item Value Reference Range Interpretation Comme nts WBC (test code = 1001) 6.1 K/UL RBC (test code = 1002) 4.66 M/UL HEMOGLOBIN (test code = 1003) 13.3 G/DL HEMATOCRIT (test code = 1004) 40.1 % MCV (test code = 1005) 86.1 fL MCH (test code = 1006) 28.5 PG MCHC (test code = 1007) 33.2 G/DL RDW (test code = 1038) 13.5 % NEUTROPHILS (test code = 1008) 61.7 % LYMPHOCYTES (test code = 1010) 25.9 % MONOCYTES (test code = 1011) 9.8 % EOSINOPHILS (test code = 1012) 2.1 % BASOPHILS (test code = 1013) 0.5 % PLATELET COUNT (test code = 1015) 167 K/UL CBC W/AUTO [id number] 00:00:00* Test Item Value Reference Range Interpretation Comme nts WBC (test code = 1001) 6.1 K/UL RBC (test code = 1002) 4.66 M/UL HEMOGLOBIN (test code = 1003) 13.3 G/DL HEMATOCRIT (test code = 1004) 40.1 % MCV (test code = 1005) 86.1 fL MCH (test code = 1006) 28.5 PG MCHC (test code = 1007) 33.2 G/DL RDW (test code = 1038) 13.5 % NEUTROPHILS (test code = 1008) 61.7 % LYMPHOCYTES (test code = 1010) 25.9 % MONOCYTES (test code = 1011) 9.8 % EOSINOPHILS (test code = 1012) 2.1 % BASOPHILS (test code = 1013) 0.5 % PLATELET COUNT (test code = 1015) 167 K/UL HEMOGLOBIN [id number] 00:00:00* Test Item Value Reference Range Interpretation Comme nts HEMOGLOBIN A1c (test code = 02518) 5.8 % HEMOGLOBIN [id number] 00:00:00* Test Item Value Reference Range Interpretation Comme nts HEMOGLOBIN A1c (test code = 44830) 5.8 % HEMOGLOBIN [id number] 00:00:00* Test Item Value Reference Range Interpretation Comme nts HEMOGLOBIN A1c (test code = 97070) 5.8 % [id number] 00:00:00* Test Item Value Reference Range Interpretation Comme nts TSH, THIRD GENERATION (test code = 2821) 1.970 UIU/ML HEMOGLOBIN [id number] 00:00:00* Test Item Value Reference Range Interpretation Comme nts HEMOGLOBIN A1c (test code = 59963) 5.8 % [id number] 00:00:00* Test Item Value Reference Range Interpretation Comme nts TSH, THIRD GENERATION (test code = 2821) 1.970 UIU/ML [id number] 00:00:00* Test Item Value Reference Range Interpretation Comme nts TSH, THIRD GENERATION (test code = 2821) 1.970 UIU/ML HEMOGLOBIN [id number] 00:00:00* Test Item Value Reference Range Interpretation Comme nts HEMOGLOBIN A1c (test code = 38841) 5.8 % [id number] 00:00:00* Test Item Value Reference Range Interpretation Comme nts TSH, THIRD GENERATION (test code = 2821) 1.970 UIU/ML [id number] 00:00:00* Test Item Value Reference Range Interpretation Comme nts TSH, THIRD GENERATION (test code = 2821) 1.970 UIU/ML COMPREHENSIVE METABOLIC [id number] 00:00:00* Test Item Value Reference Range Interpretation Comme nts GLUCOSE (test code = 2217) 74 MG/DL BUN (test code = 2208) 15 MG/DL CREATININE (test code = 2214) 0.63 MG/DL eGFR AMER. (test cod e = 63897) 116 ML/MIN/1.73 eGFR NON- AMER. (test code = 98158) 100 ML/MIN/1.73 CALC BUN/CREAT (test code = 2235) 24 RATIO SODIUM (test code = 2231) 144 MEQ/L POTASSIUM (test code = 2228) 4.0 MEQ/L CHLORIDE (test code = 2215) 104 MEQ/L CARBON DIOXIDE (test code = 2206) 28 MEQ/L CALCIUM (test code = 2209) 10.3 MG/DL PROTEIN, TOTAL (test code = 2229) 7.6 G/DL ALBUMIN (test code = 2201) 4.5 G/DL CALC GLOBULIN (test code = 2240) 3.1 G/DL CALC A/G RATIO (test code = 2234) 1.5 RATIO BILIRUBIN, TOTAL (test code = 2207) 0.4 MG/DL ALKALINE PHOSPHATASE (test code = 2204) 92 U/L AST (test code = 2218) 30 U/L ALT (test code = 2219) 19 U/L LIPID [id number] 00:00:00* Test Item Value Reference Range Interpretation Comme nts CHOLESTEROL (test code = 2210) 255 MG/DL TRIGLYCERIDES (test code = 2232) 109 MG/DL HDL CHOLESTEROL (test code = 2220) 75 MG/DL CALC LDL CHOL (test code = 2237) 158 MG/DL RISK RATIO LDL/HDL (test cod e = 2238) 2.11 RATIO LIPID [id number] 00:00:00* Test Item Value Reference Range Interpretation Comme nts CHOLESTEROL (test code = 2210) 255 MG/DL TRIGLYCERIDES (test code = 2232) 109 MG/DL HDL CHOLESTEROL (test code = 2220) 75 MG/DL CALC LDL CHOL (test code = 2237) 158 MG/DL RISK RATIO LDL/HDL (test cod e = 2238) 2.11 RATIO CBC W/AUTO [id number] 00:00:00* Test Item Value Reference Range Interpretation Comme nts WBC (test code = 1001) 6.5 K/UL RBC (test code = 1002) 4.71 M/UL HEMOGLOBIN (test code = 1003) 13.8 G/DL HEMATOCRIT (test code = 1004) 40.6 % MCV (test code = 1005) 86.2 fL MCH (test code = 1006) 29.3 PG MCHC (test code = 1007) 34.0 G/DL RDW (test code = 1038) 13.3 % NEUTROPHILS (test code = 1008) 59.7 % LYMPHOCYTES (test code = 1010) 23.5 % MONOCYTES (test code = 1011) 10.1 % EOSINOPHILS (test code = 1012) 5.0 % BASOPHILS (test code = 1013) 1.7 % PLATELET COUNT (test code = 1015) 118 K/UL COMMENTS (test code = 1016) (NOTE) CBC W/AUTO [id number] 00:00:00* Test Item Value Reference Range Interpretation Comme nts WBC (test code = 1001) 6.5 K/UL RBC (test code = 1002) 4.71 M/UL HEMOGLOBIN (test code = 1003) 13.8 G/DL HEMATOCRIT (test code = 1004) 40.6 % MCV (test code = 1005) 86.2 fL MCH (test code = 1006) 29.3 PG MCHC (test code = 1007) 34.0 G/DL RDW (test code = 1038) 13.3 % NEUTROPHILS (test code = 1008) 59.7 % LYMPHOCYTES (test code = 1010) 23.5 % MONOCYTES (test code = 1011) 10.1 % EOSINOPHILS (test code = 1012) 5.0 % BASOPHILS (test code = 1013) 1.7 % PLATELET COUNT (test code = 1015) 118 K/UL COMMENTS (test code = 1016) (NOTE) CBC W/AUTO [id number] 00:00:00* Test Item Value Reference Range Interpretation Comme nts WBC (test code = 1001) 6.5 K/UL RBC (test code = 1002) 4.71 M/UL HEMOGLOBIN (test code = 1003) 13.8 G/DL HEMATOCRIT (test code = 1004) 40.6 % MCV (test code = 1005) 86.2 fL MCH (test code = 1006) 29.3 PG MCHC (test code = 1007) 34.0 G/DL RDW (test code = 1038) 13.3 % NEUTROPHILS (test code = 1008) 59.7 % LYMPHOCYTES (test code = 1010) 23.5 % MONOCYTES (test code = 1011) 10.1 % EOSINOPHILS (test code = 1012) 5.0 % BASOPHILS (test code = 1013) 1.7 % PLATELET COUNT (test code = 1015) 118 K/UL COMMENTS (test code = 1016) (NOTE) COMPREHENSIVE METABOLIC [id number] 00:00:00* Test Item Value Reference Range Interpretation Comme nts GLUCOSE (test code = 2217) 74 MG/DL BUN (test code = 2208) 15 MG/DL CREATININE (test code = 2214) 0.63 MG/DL eGFR AMER. (test cod e = 36945) 116 ML/MIN/1.73 eGFR NON- AMER. (test code = 52760) 100 ML/MIN/1.73 CALC BUN/CREAT (test code = 2235) 24 RATIO SODIUM (test code = 2231) 144 MEQ/L POTASSIUM (test code = 2228) 4.0 MEQ/L CHLORIDE (test code = 2215) 104 MEQ/L CARBON DIOXIDE (test code = 2206) 28 MEQ/L CALCIUM (test code = 2209) 10.3 MG/DL PROTEIN, TOTAL (test code = 2229) 7.6 G/DL ALBUMIN (test code = 2201) 4.5 G/DL CALC GLOBULIN (test code = 2240) 3.1 G/DL CALC A/G RATIO (test code = 2234) 1.5 RATIO BILIRUBIN, TOTAL (test code = 2207) 0.4 MG/DL ALKALINE PHOSPHATASE (test code = 2204) 92 U/L AST (test code = 2218) 30 U/L ALT (test code = 2219) 19 U/L COMPREHENSIVE METABOLIC [id number] 00:00:00* Test Item Value Reference Range Interpretation Comme nts GLUCOSE (test code = 2217) 74 MG/DL BUN (test code = 2208) 15 MG/DL CREATININE (test code = 2214) 0.63 MG/DL eGFR AMER. (test cod e = ) 116 ML/MIN/1.73 eGFR NON- AMER. (test code = 22513) 100 ML/MIN/1.73 CALC BUN/CREAT (test code = 2235) 24 RATIO SODIUM (test code = 2231) 144 MEQ/L POTASSIUM (test code = 2228) 4.0 MEQ/L CHLORIDE (test code = 2215) 104 MEQ/L CARBON DIOXIDE (test code = 2206) 28 MEQ/L CALCIUM (test code = 2209) 10.3 MG/DL PROTEIN, TOTAL (test code = 2229) 7.6 G/DL ALBUMIN (test code = 2201) 4.5 G/DL CALC GLOBULIN (test code = 2240) 3.1 G/DL CALC A/G RATIO (test code = 2234) 1.5 RATIO BILIRUBIN, TOTAL (test code = 2207) 0.4 MG/DL ALKALINE PHOSPHATASE (test code = 2204) 92 U/L AST (test code = 2218) 30 U/L ALT (test code = 2219) 19 U/L LIPID [id number] 00:00:00* Test Item Value Reference Range Interpretation Comme nts CHOLESTEROL (test code = 2210) 255 MG/DL TRIGLYCERIDES (test code = 2232) 109 MG/DL HDL CHOLESTEROL (test code = 2220) 75 MG/DL CALC LDL CHOL (test code = 2237) 158 MG/DL RISK RATIO LDL/HDL (test cod e = 223) 2.11 RATIO CBC W/AUTO [id number] 00:00:00* Test Item Value Reference Range Interpretation Comme nts WBC (test code = 1001) 6.5 K/UL RBC (test code = 1002) 4.71 M/UL HEMOGLOBIN (test code = 1003) 13.8 G/DL HEMATOCRIT (test code = 1004) 40.6 % MCV (test code = 1005) 86.2 fL MCH (test code = 1006) 29.3 PG MCHC (test code = 1007) 34.0 G/DL RDW (test code = 1038) 13.3 % NEUTROPHILS (test code = 1008) 59.7 % LYMPHOCYTES (test code = 1010) 23.5 % MONOCYTES (test code = 1011) 10.1 % EOSINOPHILS (test code = 1012) 5.0 % BASOPHILS (test code = 1013) 1.7 % PLATELET COUNT (test code = 1015) 118 K/UL COMMENTS (test code = 1016) (NOTE) LIPID [id number] 00:00:00* Test Item Value Reference Range Interpretation Comme nts CHOLESTEROL (test code = 2210) 255 MG/DL TRIGLYCERIDES (test code = 2232) 109 MG/DL HDL CHOLESTEROL (test code = 2220) 75 MG/DL CALC LDL CHOL (test code = 2237) 158 MG/DL RISK RATIO LDL/HDL (test cod e = 2238) 2.11 RATIO CBC W/AUTO [id number] 00:00:00* Test Item Value Reference Range Interpretation Comme nts WBC (test code = 1001) 6.5 K/UL RBC (test code = 1002) 4.71 M/UL HEMOGLOBIN (test code = 1003) 13.8 G/DL HEMATOCRIT (test code = 1004) 40.6 % MCV (test code = 1005) 86.2 fL MCH (test code = 1006) 29.3 PG MCHC (test code = 1007) 34.0 G/DL RDW (test code = 1038) 13.3 % NEUTROPHILS (test code = 1008) 59.7 % LYMPHOCYTES (test code = 1010) 23.5 % MONOCYTES (test code = 1011) 10.1 % EOSINOPHILS (test code = 1012) 5.0 % BASOPHILS (test code = 1013) 1.7 % PLATELET COUNT (test code = 1015) 118 K/UL COMMENTS (test code = 1016) (NOTE) CBC W/AUTO [id number] 00:00:00* Test Item Value Reference Range Interpretation Comme nts WBC (test code = 1001) 6.5 K/UL RBC (test code = 1002) 4.71 M/UL HEMOGLOBIN (test code = 1003) 13.8 G/DL HEMATOCRIT (test code = 1004) 40.6 % MCV (test code = 1005) 86.2 fL MCH (test code = 1006) 29.3 PG MCHC (test code = 1007) 34.0 G/DL RDW (test code = 1038) 13.3 % NEUTROPHILS (test code = 1008) 59.7 % LYMPHOCYTES (test code = 1010) 23.5 % MONOCYTES (test code = 1011) 10.1 % EOSINOPHILS (test code = 1012) 5.0 % BASOPHILS (test code = 1013) 1.7 % PLATELET COUNT (test code = 1015) 118 K/UL COMMENTS (test code = 1016) (NOTE) CBC W/AUTO [id number] 00:00:00* Test Item Value Reference Range Interpretation Comme nts WBC (test code = 1001) 6.5 K/UL RBC (test code = 1002) 4.71 M/UL HEMOGLOBIN (test code = 1003) 13.8 G/DL HEMATOCRIT (test code = 1004) 40.6 % MCV (test code = 1005) 86.2 fL MCH (test code = 1006) 29.3 PG MCHC (test code = 1007) 34.0 G/DL RDW (test code = 1038) 13.3 % NEUTROPHILS (test code = 1008) 59.7 % LYMPHOCYTES (test code = 1010) 23.5 % MONOCYTES (test code = 1011) 10.1 % EOSINOPHILS (test code = 1012) 5.0 % BASOPHILS (test code = 1013) 1.7 % PLATELET COUNT (test code = 1015) 118 K/UL COMMENTS (test code = 1016) (NOTE) COMPREHENSIVE METABOLIC [id number] 00:00:00* Test Item Value Reference Range Interpretation Comme nts GLUCOSE (test code = 2217) 74 MG/DL BUN (test code = 2208) 15 MG/DL CREATININE (test code = 2214) 0.63 MG/DL eGFR AMER. (test cod e = 83721) 116 ML/MIN/1.73 eGFR NON- AMER. (test code = 51013) 100 ML/MIN/1.73 CALC BUN/CREAT (test code = 2235) 24 RATIO SODIUM (test code = 2231) 144 MEQ/L POTASSIUM (test code = 2228) 4.0 MEQ/L CHLORIDE (test code = 2215) 104 MEQ/L CARBON DIOXIDE (test code = 2206) 28 MEQ/L CALCIUM (test code = 2209) 10.3 MG/DL PROTEIN, TOTAL (test code = 2229) 7.6 G/DL ALBUMIN (test code = 2201) 4.5 G/DL CALC GLOBULIN (test code = 2240) 3.1 G/DL CALC A/G RATIO (test code = 2234) 1.5 RATIO BILIRUBIN, TOTAL (test code = 2207) 0.4 MG/DL ALKALINE PHOSPHATASE (test code = 2204) 92 U/L AST (test code = 2218) 30 U/L ALT (test code = 2219) 19 U/L LIPID [id number] 00:00:00* Test Item Value Reference Range Interpretation Comme nts CHOLESTEROL (test code = 2210) 201 MG/DL TRIGLYCERIDES (test code = 2232) 98 MG/DL HDL CHOLESTEROL (test code = 2220) 63 MG/DL CALCULATED LDL CHOL (test co de = 223) 118 MG/DL RISK RATIO LDL/HDL (test cod e = 2238) 1.88 RATIO COMPREHENSIVE METABOLIC [id number] 00:00:00* Test Item Value Reference Range Interpretation Comme nts GLUCOSE (test code = 2217) 99 MG/DL BUN (test code = 2208) 17 MG/DL CREATININE (test code = 2214) 0.90 MG/DL eGFR AMER. (test cod e = 94536) 83 ML/MIN/1.73 eGFR NON- AMER. (test code = 89264) 72 ML/MIN/1.73 CALCULATED BUN/CREAT (test code = 2235) 19 RATIO SODIUM (test code = 2231) 142 MEQ/L POTASSIUM (test code = 2228) 4.3 MEQ/L CHLORIDE (test code = 2215) 107 MEQ/L CARBON DIOXIDE (test code = 2206) 25 MEQ/L CALCIUM (test code = 2209) 9.6 MG/DL PROTEIN, TOTAL (test code = 2229) 6.3 G/DL ALBUMIN (test code = 2201) 3.7 G/DL CALCULATED GLOBULIN (test co de = 2240) 2.6 G/DL CALCULATED A/G RATIO (test code = 2234) 1.4 RATIO BILIRUBIN, TOTAL (test code = 2207) 0.3 MG/DL ALKALINE PHOSPHATASE (test code = 2204) 84 U/L SGOT (AST) (test code = 2218) 18 U/L SGPT (ALT) (test code = 2219) 14 U/L LIPID [id number] 00:00:00* Test Item Value Reference Range Interpretation Comme nts CHOLESTEROL (test code = 2210) 201 MG/DL TRIGLYCERIDES (test code = 2232) 98 MG/DL HDL CHOLESTEROL (test code = 2220) 63 MG/DL CALCULATED LDL CHOL (test co de = 2237) 118 MG/DL RISK RATIO LDL/HDL (test cod e = 2238) 1.88 RATIO CBC W/AUTO [id number] 00:00:00* Test Item Value Reference Range Interpretation Comme nts WBC (test code = 1001) 4.5 K/UL RBC (test code = 1002) 4.44 M/UL HEMOGLOBIN (test code = 1003) 12.7 G/DL HEMATOCRIT (test code = 1004) 39.1 % MCV (test code = 1005) 88.1 fL MCH (test code = 1006) 28.6 PG MCHC (test code = 1007) 32.5 G/DL RDW (test code = 1038) 14.7 % NEUTROPHILS (test code = 1008) 56 % LYMPHOCYTES (test code = 1010) 32 % MONOCYTES (test code = 1011) 9 % EOSINOPHILS (test code = 1012) 3 % BASOPHILS (test code = 1013) % PLATELET COUNT (test code = 1015) 283 K/UL CBC W/AUTO [id number] 00:00:00* Test Item Value Reference Range Interpretation Comme nts WBC (test code = 1001) 4.5 K/UL RBC (test code = 1002) 4.44 M/UL HEMOGLOBIN (test code = 1003) 12.7 G/DL HEMATOCRIT (test code = 1004) 39.1 % MCV (test code = 1005) 88.1 fL MCH (test code = 1006) 28.6 PG MCHC (test code = 1007) 32.5 G/DL RDW (test code = 1038) 14.7 % NEUTROPHILS (test code = 1008) 56 % LYMPHOCYTES (test code = 1010) 32 % MONOCYTES (test code = 1011) 9 % EOSINOPHILS (test code = 1012) 3 % BASOPHILS (test code = 1013) % PLATELET COUNT (test code = 1015) 283 K/UL HEMOGLOBIN [id number] 00:00:00* Test Item Value Reference Range Interpretation Comme nts HEMOGLOBIN A1c (test code = 06661) 5.8 % HEMOGLOBIN [id number] 00:00:00* Test Item Value Reference Range Interpretation Comme nts HEMOGLOBIN A1c (test code = 35539) 5.8 % [id number] 00:00:00* Test Item Value Reference Range Interpretation Comme nts TSH (test code = 2821) 1.3 UIU/ML CBC W/AUTO [id number] 00:00:00* Test Item Value Reference Range Interpretation Comme nts WBC (test code = 1001) 4.5 K/UL RBC (test code = 1002) 4.44 M/UL HEMOGLOBIN (test code = 1003) 12.7 G/DL HEMATOCRIT (test code = 1004) 39.1 % MCV (test code = 1005) 88.1 fL MCH (test code = 1006) 28.6 PG MCHC (test code = 1007) 32.5 G/DL RDW (test code = 1038) 14.7 % NEUTROPHILS (test code = 1008) 56 % LYMPHOCYTES (test code = 1010) 32 % MONOCYTES (test code = 1011) 9 % EOSINOPHILS (test code = 1012) 3 % BASOPHILS (test code = 1013) % PLATELET COUNT (test code = 1015) 283 K/UL [id number] 00:00:00* Test Item Value Reference Range Interpretation Comme nts TSH (test code = 2821) 1.3 UIU/ML COMPREHENSIVE METABOLIC [id number] 00:00:00* Test Item Value Reference Range Interpretation Comme nts GLUCOSE (test code = 2217) 99 MG/DL BUN (test code = 2208) 17 MG/DL CREATININE (test code = 2214) 0.90 MG/DL eGFR AMER. (test cod e = 28460) 83 ML/MIN/1.73 eGFR NON- AMER. (test code = 18226) 72 ML/MIN/1.73 CALCULATED BUN/CREAT (test code = 2235) 19 RATIO SODIUM (test code = 2231) 142 MEQ/L POTASSIUM (test code = 2228) 4.3 MEQ/L CHLORIDE (test code = 2215) 107 MEQ/L CARBON DIOXIDE (test code = 2206) 25 MEQ/L CALCIUM (test code = 2209) 9.6 MG/DL PROTEIN, TOTAL (test code = 2229) 6.3 G/DL ALBUMIN (test code = 2201) 3.7 G/DL CALCULATED GLOBULIN (test co de = 2240) 2.6 G/DL CALCULATED A/G RATIO (test code = 2234) 1.4 RATIO BILIRUBIN, TOTAL (test code = 2207) 0.3 MG/DL ALKALINE PHOSPHATASE (test code = 2204) 84 U/L SGOT (AST) (test code = 2218) 18 U/L SGPT (ALT) (test code = 2219) 14 U/L CBC W/AUTO [id number] 00:00:00* Test Item Value Reference Range Interpretation Comme nts WBC (test code = 1001) 4.5 K/UL RBC (test code = 1002) 4.44 M/UL HEMOGLOBIN (test code = 1003) 12.7 G/DL HEMATOCRIT (test code = 1004) 39.1 % MCV (test code = 1005) 88.1 fL MCH (test code = 1006) 28.6 PG MCHC (test code = 1007) 32.5 G/DL RDW (test code = 1038) 14.7 % NEUTROPHILS (test code = 1008) 56 % LYMPHOCYTES (test code = 1010) 32 % MONOCYTES (test code = 1011) 9 % EOSINOPHILS (test code = 1012) 3 % BASOPHILS (test code = 1013) % PLATELET COUNT (test code = 1015) 283 K/UL COMPREHENSIVE METABOLIC [id number] 00:00:00* Test Item Value Reference Range Interpretation Comme nts GLUCOSE (test code = 2217) 99 MG/DL BUN (test code = 2208) 17 MG/DL CREATININE (test code = 2214) 0.90 MG/DL eGFR AMER. (test cod e = 58139) 83 ML/MIN/1.73 eGFR NON- AMER. (test code = 52939) 72 ML/MIN/1.73 CALCULATED BUN/CREAT (test code = 2235) 19 RATIO SODIUM (test code = 2231) 142 MEQ/L POTASSIUM (test code = 2228) 4.3 MEQ/L CHLORIDE (test code = 2215) 107 MEQ/L CARBON DIOXIDE (test code = 2206) 25 MEQ/L CALCIUM (test code = 2209) 9.6 MG/DL PROTEIN, TOTAL (test code = 2229) 6.3 G/DL ALBUMIN (test code = 2201) 3.7 G/DL CALCULATED GLOBULIN (test co de = 2240) 2.6 G/DL CALCULATED A/G RATIO (test code = 2234) 1.4 RATIO BILIRUBIN, TOTAL (test code = 2207) 0.3 MG/DL ALKALINE PHOSPHATASE (test code = 2204) 84 U/L SGOT (AST) (test code = 2218) 18 U/L SGPT (ALT) (test code = 2219) 14 U/L LIPID [id number] 00:00:00* Test Item Value Reference Range Interpretation Comme nts CHOLESTEROL (test code = 2210) 201 MG/DL TRIGLYCERIDES (test code = 2232) 98 MG/DL HDL CHOLESTEROL (test code = 2220) 63 MG/DL CALCULATED LDL CHOL (test co de = 2237) 118 MG/DL RISK RATIO LDL/HDL (test cod e = 2238) 1.88 RATIO LIPID [id number] 00:00:00* Test Item Value Reference Range Interpretation Comme nts CHOLESTEROL (test code = 2210) 201 MG/DL TRIGLYCERIDES (test code = 2232) 98 MG/DL HDL CHOLESTEROL (test code = 2220) 63 MG/DL CALCULATED LDL CHOL (test co de = 2237) 118 MG/DL RISK RATIO LDL/HDL (test cod e = 2238) 1.88 RATIO CBC W/AUTO [id number] 00:00:00* Test Item Value Reference Range Interpretation Comme nts WBC (test code = 1001) 4.5 K/UL RBC (test code = 1002) 4.44 M/UL HEMOGLOBIN (test code = 1003) 12.7 G/DL HEMATOCRIT (test code = 1004) 39.1 % MCV (test code = 1005) 88.1 fL MCH (test code = 1006) 28.6 PG MCHC (test code = 1007) 32.5 G/DL RDW (test code = 1038) 14.7 % NEUTROPHILS (test code = 1008) 56 % LYMPHOCYTES (test code = 1010) 32 % MONOCYTES (test code = 1011) 9 % EOSINOPHILS (test code = 1012) 3 % BASOPHILS (test code = 1013) % PLATELET COUNT (test code = 1015) 283 K/UL CBC W/AUTO [id number] 00:00:00* Test Item Value Reference Range Interpretation Comme nts WBC (test code = 1001) 4.5 K/UL RBC (test code = 1002) 4.44 M/UL HEMOGLOBIN (test code = 1003) 12.7 G/DL HEMATOCRIT (test code = 1004) 39.1 % MCV (test code = 1005) 88.1 fL MCH (test code = 1006) 28.6 PG MCHC (test code = 1007) 32.5 G/DL RDW (test code = 1038) 14.7 % NEUTROPHILS (test code = 1008) 56 % LYMPHOCYTES (test code = 1010) 32 % MONOCYTES (test code = 1011) 9 % EOSINOPHILS (test code = 1012) 3 % BASOPHILS (test code = 1013) % PLATELET COUNT (test code = 1015) 283 K/UL CBC W/AUTO [id number] 00:00:00* Test Item Value Reference Range Interpretation Comme nts WBC (test code = 1001) 4.5 K/UL RBC (test code = 1002) 4.44 M/UL HEMOGLOBIN (test code = 1003) 12.7 G/DL HEMATOCRIT (test code = 1004) 39.1 % MCV (test code = 1005) 88.1 fL MCH (test code = 1006) 28.6 PG MCHC (test code = 1007) 32.5 G/DL RDW (test code = 1038) 14.7 % NEUTROPHILS (test code = 1008) 56 % LYMPHOCYTES (test code = 1010) 32 % MONOCYTES (test code = 1011) 9 % EOSINOPHILS (test code = 1012) 3 % BASOPHILS (test code = 1013) % PLATELET COUNT (test code = 1015) 283 K/UL HEMOGLOBIN [id number] 00:00:00* Test Item Value Reference Range Interpretation Comme nts HEMOGLOBIN A1c (test code = 42374) 5.8 % HEMOGLOBIN [id number] 00:00:00* Test Item Value Reference Range Interpretation Comme nts HEMOGLOBIN A1c (test code = 32052) 5.8 % HEMOGLOBIN [id number] 00:00:00* Test Item Value Reference Range Interpretation Comme nts HEMOGLOBIN A1c (test code = 68431) 5.8 % HEMOGLOBIN [id number] 00:00:00* Test Item Value Reference Range Interpretation Comme nts HEMOGLOBIN A1c (test code = 18329) 5.8 % [id number] 00:00:00* Test Item Value Reference Range Interpretation Comme nts TSH (test code = 2821) 1.3 UIU/ML [id number] 00:00:00* Test Item Value Reference Range Interpretation Comme nts TSH (test code = 2821) 1.3 UIU/ML [id number] 00:00:00* Test Item Value Reference Range Interpretation Comme nts TSH (test code = 2821) 1.3 UIU/ML HEMOGLOBIN [id number] 00:00:00* Test Item Value Reference Range Interpretation Comme nts HEMOGLOBIN A1c (test code = 93220) 5.8 % [id number] 00:00:00* Test Item Value Reference Range Interpretation Comme nts TSH (test code = 2821) 1.3 UIU/ML [id number] 00:00:00* Test Item Value Reference Range Interpretation Comme nts TSH (test code = 2821) 1.3 UIU/ML COMPREHENSIVE METABOLIC [id number] 00:00:00* Test Item Value Reference Range Interpretation Comme nts GLUCOSE (test code = 2217) 99 MG/DL BUN (test code = 2208) 17 MG/DL CREATININE (test code = 2214) 0.90 MG/DL eGFR AMER. (test cod e = 47379) 83 ML/MIN/1.73 eGFR NON- AMER. (test code = 92444) 72 ML/MIN/1.73 CALCULATED BUN/CREAT (test code = 2235) 19 RATIO SODIUM (test code = 2231) 142 MEQ/L POTASSIUM (test code = 2228) 4.3 MEQ/L CHLORIDE (test code = 2215) 107 MEQ/L CARBON DIOXIDE (test code = 2206) 25 MEQ/L CALCIUM (test code = 2209) 9.6 MG/DL PROTEIN, TOTAL (test code = 2229) 6.3 G/DL ALBUMIN (test code = 2201) 3.7 G/DL CALCULATED GLOBULIN (test co de = 2240) 2.6 G/DL CALCULATED A/G RATIO (test code = 2234) 1.4 RATIO BILIRUBIN, TOTAL (test code = 2207) 0.3 MG/DL ALKALINE PHOSPHATASE (test code = 2204) 84 U/L SGOT (AST) (test code = 2218) 18 U/L SGPT (ALT) (test code = 2219) 14 U/L PAP TEST, THINPREP, [id number] 00:00:00* Test Item Value Reference Range Interpretation Comme nts SOURCE: (test code = 8001) CERVICAL, ENDOCERVICAL SLIDES: (test code = 8011) 1 LMP: (test code = 8021) none SPECIMEN ADEQUACY: (test code = 51518) (NOTE) INTERPRETATION: (test code = 08541) NO EPITHELIAL ABNORMALITY SEE BELOW OTHER COMMENTS: (test code = 8081) (NOTE) HEAD CHARRER: (test code = 8101) (NOTE) LOCATION: (test code = 46102) MAIN HPV HIGH RISK WITH GENOTYPE, [id number] 00:00:00* Test Item Value Reference Range Interpretation Comme nts HPV HIGH RISK INTERP (test c ode = 70065) NEGATIVE HPV 16 (test code = 81188) NEGATIVE HPV 18 (test code = 24775) NEGATIVE HPV, HR, OTHER GENOTYPES (te st code = 78348) NEGATIVE HPV HIGH RISK WITH GENOTYPE, [id number] 00:00:00* Test Item Value Reference Range Interpretation Comme nts HPV HIGH RISK INTERP (test c ode = 95288) NEGATIVE HPV 16 (test code = 05555) NEGATIVE HPV 18 (test code = 31135) NEGATIVE HPV, HR, OTHER GENOTYPES (te st code = 18103) NEGATIVE PAP TEST, THINPREP, [id number] 00:00:00* Test Item Value Reference Range Interpretation Comme nts SOURCE: (test code = 8001) CERVICAL, ENDOCERVICAL SLIDES: (test code = 8011) 1 LMP: (test code = 8021) none SPECIMEN ADEQUACY: (test code = 58862) (NOTE) INTERPRETATION: (test code = 51999) NO EPITHELIAL ABNORMALITY SEE BELOW OTHER COMMENTS: (test code = 8081) (NOTE) HEAD CHARRER: (test code = 8101) (NOTE) LOCATION: (test code = 48277) MAIN PAP TEST, THINPREP, [id number] 00:00:00* Test Item Value Reference Range Interpretation Comme nts SOURCE: (test code = 8001) CERVICAL, ENDOCERVICAL SLIDES: (test code = 8011) 1 LMP: (test code = 8021) none SPECIMEN ADEQUACY: (test code = 73084) (NOTE) INTERPRETATION: (test code = 37104) NO EPITHELIAL ABNORMALITY SEE BELOW OTHER COMMENTS: (test code = 8081) (NOTE) HEAD CHARRER: (test code = 8101) (NOTE) LOCATION: (test code = 69047) MAIN HPV HIGH RISK WITH GENOTYPE, [id number] 00:00:00* Test Item Value Reference Range Interpretation Comme nts HPV HIGH RISK INTERP (test c ode = 73361) NEGATIVE HPV 16 (test code = 99815) NEGATIVE HPV 18 (test code = 53391) NEGATIVE HPV, HR, OTHER GENOTYPES (te st code = 45892) NEGATIVE HPV HIGH RISK WITH GENOTYPE, [id number] 00:00:00* Test Item Value Reference Range Interpretation Comme nts HPV HIGH RISK INTERP (test c ode = 86153) NEGATIVE HPV 16 (test code = 45780) NEGATIVE HPV 18 (test code = 81389) NEGATIVE HPV, HR, OTHER GENOTYPES (te st code = 34214) NEGATIVE PAP TEST, THINPREP, [id number] 00:00:00* Test Item Value Reference Range Interpretation Comme nts SOURCE: (test code = 8001) CERVICAL, ENDOCERVICAL SLIDES: (test code = 8011) 1 LMP: (test code = 8021) none SPECIMEN ADEQUACY: (test code = 45162) (NOTE) INTERPRETATION: (test code = 46598) NO EPITHELIAL ABNORMALITY SEE BELOW OTHER COMMENTS: (test code = 8081) (NOTE) HEAD CHARRER: (test code = 8101) (NOTE) LOCATION: (test code = 64346) MAIN
[2024-01-07 06:47] LABS: Absolute Lymphocytes (CBC) 0.8 K/uL (0.7-4.9); Lymphocytes % 7.7 % (15.3-44.8); MCV 89.3 fL (80-100); MPV 7.4 fL (7.6-11.3); Platelets 326 thou/uL (152-406); RBC Red Blood Cell Count 4.48 M/uL (3.86-4.86)
[2024-01-07 07:09] LABS: Albumin 3.6 g/dL (3.4-5.0); Bilirubin Total 0.6 mg/dL (0.2-1.0); Potassium 4.1 mEq/L (3.5-5.1); Protein, Total 7.7 g/dL (6.4-8.2)
[2024-01-07 07:30] LABS: C-Reactive Protein 4.82 mg/L (<3.00); Thyroid Stimulating Hormone 1.56 uIU/mL (0.358-3.740)
--- NOTE | 2024-01-07 08:05 | RAD REPORT ---
EXAM DESCRIPTION: CT - Abdomen Pelvis W Contrast - 01/07/2024 7:30 am CLINICAL HISTORY: left lower abdominal pain COMPARISON: No comparisons TECHNIQUE: Thin cut axial CT imaging of the abdomen and pelvis was performed following intravenous a dministration of 100 mL Isovue 300. Multiplanar reformats were generated and reviewed. All CT scans are performed using dose optimization technique as appropriate and may include automated exposure control or mA/KV adjustment according to patient size. FINDINGS: No suspicious findings in the lung bases. The liver, spleen, adrenal glands, and pancreas show no suspicious findings. Gallbladder and biliary tree are also without suspicious finding. Varicosities and tortuosity of the left upper gastric vessels, eventually draining along the left josiane al vein. Left moderate hydroureteronephrosis. 3 mm left vesicoureteral junction calculus. Moderate perinephric edema and relative mildly delayed enhancement of the left kidney. . No dilated bowel loops or bowel wall thickening. No free air, free fluid or inflammatory stranding. C olonic diverticulosis. No hernia, mass or bulky lymphadenopathy. The urinary bladder is without signi ficant finding. No suspicious bony findings. IMPRESSION: Moderate left hydroureteronephrosis secondary to a 3 mm left vesicoureteral junction jaycee culus. Limited left upper quadrant varicosities. Colonic diverticulosis. The findings were communicated to Sudhir Jacob on 01/07/2024 at 07:59 hours.
[2024-01-07 08:12] LABS: Specific Gravity > 1.030 (1.005-1.030); Urine Bacteria None Seen /HPF (<20); Urine Bilirubin NEGATIVE (Negative); Urine Blood Negative (Negative); Urine Clarity Extremely Turbid (Clear); Urine Color Light-Yellow (Yellow); Urine Glucose 2+ (Negative); Urine Protein TRACE (Negative); Urine Urobilinogen Normal (Normal); Urine pH 7.5 (5.0-7.0)
--- NOTE | 2024-01-07 09:57 | ER ---
Nurse's Notes [facility] Name: Maria Del Carmen Barr Age: 63 yrs Sex: Female : 1960 Arrival Date: 01/07/2024 Time: 05:57 Bed 8 Private MD: Diagnosis: Calculus of ureter Presentation: 01/07 06:42 Chief complaint: Patient states: pain from left back to middle abdomen, with episodes as9 of vomiting around 0130H today. patient states that she is having 10/10 pain at this time. Coronavirus screen: At this time, the client does not indicate any symptoms associated with coronavirus-19. Ebola Screen: No symptoms or risks identified at this time. 06:42 Method Of Arrival: Ambulatory as9 06:42 Initial Sepsis Screen: Does the patient meet any 2 criteria? No. Patient's initial as9 sepsis screen is negative. Does the patient have a suspected source of infection? No. Patient's initial sepsis screen is negative. Risk Assessment: Do you want to hurt yourself or someone else? Patient reports no desire to harm self or others. Onset of symptoms was January 07, 2024 at 01:30. 06:42 Acuity: ADÁN 3 as9 Triage Assessment: 06:49 General: Appears in no apparent distress. uncomfortable, Behavior is calm, cooperative, as9 appropriate for age. Pain: Complains of pain in low back area, posterior aspect of left lateral abdomen and anterior aspect of left lateral abdomen. EENT: No signs and/or symptoms were reported regarding the EENT system. Neuro: Level of Consciousness is awake, alert, obeys commands, Oriented to person, place, time, situation, Appropriate for age. Cardiovascular: Capillary refill < 3 seconds Patient's skin is warm and dry. Respiratory: Airway is patent Respiratory effort is even, unlabored, Respiratory pattern is regular, symmetrical. GI: Abdomen is non-distended. : No signs and/or symptoms were reported regarding the genitourinary system. Derm: Skin is intact, Skin is pink, warm \T\ dry. Musculoskeletal: Circulation, motion, and sensation intact. Range of motion: intact in all extremities. Historical: - Allergies: 06:49 No Known Allergies; as9 - PMHx: 06:49 None; as9 - PSHx: 06:49 None; as9 - Immunization history:: Client reports receiving the 2nd dose of the Covid vaccine. - Social history:: Smoking status: Patient denies any tobacco usage or history of. Patient/guardian denies using alcohol, street drugs. - Family history:: not pertinent. Screenin:00 [facility] ED Fall Risk Assessment (Adult) History of falling in the last 3 months, as9 including since admission No falls in past 3 months (0 pts) Confusion or Disorientation No (0 pts) Intoxicated or Sedated No (0 pts) Impaired Gait No (0 pts) Mobility Assist Device Used No (0 pt) Altered Elimination No (0 pt) Score/Fall Risk Level 0 - 2 = Low Risk. Abuse screen: Denies threats or abuse. Nutritional screening: No deficits noted. Tuberculosis screening: No symptoms or risk factors identified. Assessment: 06:58 Reassessment: see triage assessments notes. as9 07:01 General: Appears in no apparent distress. comfortable, Behavior is calm, cooperative. rs5 Pain: Complains of pain in left lower back Pain radiates to lower abdomen Pain currently is 3 out of 10 on a pain scale. Quality of pain is described as aching, Pain began 4 hours ago. Is continuous. Neuro: Level of Consciousness is awake, alert, obeys commands, Oriented to person, place, time, situation. Cardiovascular: Patient's skin is warm and dry. Rhythm is regular. Respiratory: Respiratory effort is even, unlabored, Respiratory pattern is regular, symmetrical. GI: Abdomen is round non-distended, Abd is soft and non tender X 4 quads. : No signs and/or symptoms were reported regarding the genitourinary system. EENT: No signs and/or symptoms were reported regarding the EENT system. Derm: Skin is intact, Skin is dry, Skin is normal, Skin temperature is warm. Musculoskeletal: Range of motion: intact in all extremities. 08:00 Pain: Complains of pain in left lower back Pain radiates to left lower quadrant Pain rs5 currently is 7 out of 10 on a pain scale. Quality of pain is described as aching, Is continuous. 08:00 GI: Patient currently denies nausea. rs5 08:02 Reassessment: Provider notified pt is experiencing pain. rs5 09:15 Reassessment: Patient and/or family updated on plan of care and expected duration. Pain rs5 level reassessed. Patient is alert, oriented x 3, equal unlabored respirations, skin warm/dry/pink. Patient denies pain at this time. Patient states feeling better. Patient states symptoms have improved. 10:10 Reassessment: No changes from previously documented assessment. rs5 Vital Signs: 06:30 BP 147 / 84; Pulse 66; Resp 20; Temp 98.5; Pulse Ox 100% on R/A; as9 06:42 BP 153 / 87; Pulse 68; Resp 18; Temp 98.5; Pulse Ox 100% on R/A; Weight 54.43 kg; as9 Height 5 ft. 0 in. ; 07:48 BP 119 / 62; Pulse 77; Resp 17; Temp 98.3(O); Pulse Ox 99% on R/A; rs5 09:16 BP 125 / 78; Pulse 75; Resp 17; Pulse Ox 99% on R/A; rs5 10:29 BP 120 / 81; Pulse 70; Resp 17; Pulse Ox 99% on R/A; rs5 06:42 Body Mass Index 23.44 (54.43 kg, 152.4 cm) as9 ED Course: 06:03 Patient arrived in ED. gm2 06:04 Robert Wing MD is Attending Physician. sp4 06:40 TSH Sent. as9 06:40 CRP Sent. as9 06:41 CBC with Diff Sent. as9 06:41 CMP Sent. as9 06:41 Lipase Sent. as9 06:42 Inserted saline lock: 20 gauge in right antecubital area, using aseptic technique. as9 Blood collected. 06:49 Triage completed. as9 07:00 Patient has correct armband on for positive identification. Placed in gown. Bed in low as9 position. Call light in reach. Side rails up X 1. 07:01 Attending Physician role handed off by Robert Wing MD rn 07:01 Sudhir Jacob MD is Attending Physician. rn 07:06 Konstantin Guzman, EARNESTINE is Primary Nurse. rs5 07:09 Arm band placed on. jw7 07:32 CT Abd/Pelvis - IV Contrast Only In Process Unspecified. EDMS 07:48 No provider procedures requiring assistance completed. rs5 10:30 IV discontinued, intact, bleeding controlled, No redness/swelling at site. Pressure rs5 dressing applied. Administered Medications: 07:08 Drug: morphine IVP or IV 4 mg IVP once over 4 mins Route: IVP; Infused Over: 4 mins; jw7 Site: right antecubital; 07:30 Follow up: Response: No adverse reaction; Pain is decreased rs5 07:08 Drug: Ketorolac IVP 30 mg IVP once Route: IVP; Site: right antecubital; jw7 07:30 Follow up: Response: No adverse reaction; Pain is decreased rs5 07:08 Drug: Ondansetron IVP 4 mg IVP once; over 2 minutes Route: IVP; Site: right antecubital;jw7 07:30 Follow up: Response: No adverse reaction; Nausea is decreased rs5 07:08 Drug: Famotidine IVP 20 mg IVP once; dilute with 10 mL 0.9% NaCl; give over 2 minutes jw7 Route: IVP; Site: right antecubital; 07:30 Follow up: Response: No adverse reaction rs5 07:08 Drug: NS 0.9% IV 1000 ml IV at 1 bolus Per protocol; 1000 mL bolus Route: IV; Rate: 1 jw7 bolus; Site: right antecubital; 07:30 Follow up: Response: No adverse reaction rs5 08:09 Drug: Flomax PO 0.4 mg PO once Route: PO; rs5 08:17 Follow up: Response: No adverse reaction rs5 08:09 Drug: morphine IVP or IV 2 mg IVP once over 4 mins Route: IVP; Infused Over: 4 mins; rs5 Site: right antecubital; 08:17 Follow up: Response: No adverse reaction; Pain is decreased rs5 08:10 Drug: Magnesium Sulfate IVPB 1 grams IVPB once over 1 hrs Route: IVPB; Infused Over: 1 rs5 hrs; Site: left antecubital; 08:17 Follow up: Response: No adverse reaction rs5 Medication: 07:48 VIS not applicable for this client. rs5 Outcome: 09:57 Discharge ordered by rn 10:30 Discharged to home ambulatory, rs5 10:30 Condition: stable 10:30 Discharge instructions given to patient, family, Instructed on discharge instructions, follow up and referral plans. medication usage, Demonstrated understanding of instructions, follow-up care, medications, Prescriptions given X 3, 10:30 Patient left the ED. rs5 Signatures: Dispatcher [employer] EDMS Sudhir Jacob MD MD rn Waits, Jodi RN RN jw7 Konstantin Guzman RN RN rs5 Robert Wing MD MD sp4 Mayda Andrew 2 Cem Hall RN RN as9 Corrections: (The following items were deleted from the chart) 07:16 07:13 General: Appears in no apparent distress. comfortable, Behavior is calm, rs5 cooperative, rs5 07:16 07:13 Pain: rs5 rs5 09:16 07:48 BP 119 / 62; Pulse 77bpm; Resp 17bpm; Pulse Ox 99% RA; Temp 98.3F Oral; rs5 rs5 10:30 10:29 BP 120 / 81; Pulse 70bpm; Resp 70bpm; Pulse Ox 99% RA; rs5 rs5
--- NOTE | 2024-01-07 09:57 | EDPHYS ---
Physician Documentation [facility] Name: Maria Del Carmen Barr Age: 63 yrs Sex: Female : 1960 Arrival Date: 01/07/2024 Time: 05:57 Bed 8 Private MD: ED Physician Sudhir Jacob HPI: 01/07 06:29 This 63 yrs old Female presents to ER via Unassigned with complaints of sp4 Abdominal Pain, Back Pain. 06:29 63-year-old female [place]i-speaking mostly presents with acute onset of left lower sp4 abdominal pain left back left flank pain and left groin pain starting at 2 AM. Associated with some vomiting. . Historical: - Allergies: 06:49 No Known Allergies; as9 - PMHx: 06:49 None; as9 - PSHx: 06:49 None; as9 - Immunization history:: Client reports receiving the 2nd dose of the Covid vaccine. - Social history:: Smoking status: Patient denies any tobacco usage or history of. Patient/guardian denies using alcohol, street drugs. - Family history:: not pertinent. ROS: 06:29 Constitutional: Negative for fever, chills, and weight loss, Positive abdominal pain, sp4 positive left groin pain , and positive left lower back pain 06:29 All other systems are negative, Exam: 06:29 Constitutional: This is a well developed, well nourished patient who is awake, alert, sp4 and in no acute distress. Head/Face: Normocephalic, atraumatic. Eyes: Pupils equal round and reactive to light, extra-ocular motions intact. Lids and lashes normal. Conjunctiva and sclera are not injected. Cornea within normal limits. Periorbital areas with no swelling, redness, or edema. ENT: Nares patent. No nasal discharge, no septal abnormalities noted. Tympanic membranes are normal and external auditory canals are clear. Oropharynx with no redness, swelling, or masses, exudates, or evidence of obstruction, uvula midline. Mucous membranes moist. Neck: Trachea midline, no thyromegaly or masses palpated, and no cervical lymphadenopathy. Supple, full range of motion without nuchal rigidity, or vertebral point tenderness. Chest/axilla: Normal chest wall appearance and motion. Nontender with no deformity. No lesions are appreciated. Cardiovascular: Regular rate and rhythm with a normal S1 and S2. No gallops, murmurs, or rubs. Normal PMI, no JVD. No pulse deficits. Respiratory: Lungs have equal breath sounds bilaterally, clear to auscultation and percussion. No rales, rhonchi or wheezes noted. No increased work of breathing, no retractions or nasal flaring. Abdomen/GI: Soft, with normal bowel sounds. No distension or tympany. No guarding or rebound, Left lower abdominal tenderness. No peritoneal signs Back: No spinal tenderness. No costovertebral tenderness. Skin: Warm, dry with normal turgor. Normal color with no rashes, no lesions, and no evidence of cellulitis. MS/ Extremity: Pulses equal, no cyanosis. Neurovascular intact. Full, normal range of motion. Neuro: Awake and alert, GCS 15, oriented to person, place, time, and situation. Cranial nerves II-XII grossly intact. Motor strength 5/5 in all extremities. Sensory grossly intact. Psych: Awake, alert, with orientation to person, place and time. Behavior, mood, and affect are within normal limits Vital Signs: 06:30 BP 147 / 84; Pulse 66; Resp 20; Temp 98.5; Pulse Ox 100% on R/A; as9 06:42 BP 153 / 87; Pulse 68; Resp 18; Temp 98.5; Pulse Ox 100% on R/A; Weight 54.43 kg; as9 Height 5 ft. 0 in. ; 07:48 BP 119 / 62; Pulse 77; Resp 17; Temp 98.3(O); Pulse Ox 99% on R/A; rs5 09:16 BP 125 / 78; Pulse 75; Resp 17; Pulse Ox 99% on R/A; rs5 10:29 BP 120 / 81; Pulse 70; Resp 17; Pulse Ox 99% on R/A; rs5 06:42 Body Mass Index 23.44 (54.43 kg, 152.4 cm) as9 MDM: 06:05 Patient medically screened. sp4 07:04 Differential diagnosis: Basilar Pneumonia Fatigue Myeloma Scoliosis. Data reviewed: sp4 vital signs, nurses notes, old medical records, lab test result(s), radiologic studies. Transition of care: After a detail discussion of the patient's case, care is transferred to Sudhir Jacob MD. 09:03 ED course: Pain markedly improved, stone might have passed into the bladder.. rn 09:56 Counseling: I had a detailed discussion with the patient and/or guardian regarding the rn historical points, exam findings, and any diagnostic results supporting the discharge/admit diagnosis, lab results, radiology results, the need for outpatient follow up, to return to the emergency department if symptoms worsen or persist or if there are any questions or concerns that arise at home. Special discussion: I discussed with the patient/guardian in detail that at this point there is no indication for admission to the hospital. It is understood, however, that if the symptoms persist or worsen the patient needs to return immediately for re-evaluation. ED course: Patient's pain continues to be controlled. Small 3 mm stone at UVJ. Most likely passed into the bladder now. No UTI. Stable vital signs and feels much better. Will discharge home with return precautions. I have personally reviewed all of the results, including but not limited to blood tests and imaging deemed necessary to safely discharge this patient at this time. All results given to and printed out for patient. I personally went over all the results with the patient and answered all questions. Patient will follow-up with PCP and or specialist as discussed. Return precautions given and understood.. 01/07 06:05 Order name: CBC with Diff; Complete Time: 07:01 sp4 01/07 06:05 Order name: CMP; Complete Time: 07:51 sp4 01/07 06:05 Order name: Lipase; Complete Time: 07:51 sp4 01/07 06:05 Order name: Urinalysis w/ reflexes; Complete Time: 08:14 sp4 01/07 06:18 Order name: CRP; Complete Time: 07:51 sp4 01/07 06:19 Order name: TSH; Complete Time: 07:51 sp4 01/07 06:18 Order name: CT Abd/Pelvis - IV Contrast Only; Complete Time: 08:06 sp4 01/07 06:05 Order name: IV Saline Lock; Complete Time: 06:42 sp4 01/07 06:05 Order name: Labs collected and sent; Complete Time: 06:42 sp4 Administered Medications: 07:08 Drug: morphine IVP or IV 4 mg IVP once over 4 mins Route: IVP; Infused Over: 4 mins; jw7 Site: right antecubital; 07:30 Follow up: Response: No adverse reaction; Pain is decreased rs5 07:08 Drug: Ketorolac IVP 30 mg IVP once Route: IVP; Site: right antecubital; jw7 07:30 Follow up: Response: No adverse reaction; Pain is decreased rs5 07:08 Drug: Ondansetron IVP 4 mg IVP once; over 2 minutes Route: IVP; Site: right antecubital;jw7 07:30 Follow up: Response: No adverse reaction; Nausea is decreased rs5 07:08 Drug: Famotidine IVP 20 mg IVP once; dilute with 10 mL 0.9% NaCl; give over 2 minutes jw7 Route: IVP; Site: right antecubital; 07:30 Follow up: Response: No adverse reaction rs5 07:08 Drug: NS 0.9% IV 1000 ml IV at 1 bolus Per protocol; 1000 mL bolus Route: IV; Rate: 1 jw7 bolus; Site: right antecubital; 07:30 Follow up: Response: No adverse reaction rs5 08:09 Drug: Flomax PO 0.4 mg PO once Route: PO; rs5 08:17 Follow up: Response: No adverse reaction rs5 08:09 Drug: morphine IVP or IV 2 mg IVP once over 4 mins Route: IVP; Infused Over: 4 mins; rs5 Site: right antecubital; 08:17 Follow up: Response: No adverse reaction; Pain is decreased rs5 08:10 Drug: Magnesium Sulfate IVPB 1 grams IVPB once over 1 hrs Route: IVPB; Infused Over: 1 rs5 hrs; Site: left antecubital; 08:17 Follow up: Response: No adverse reaction rs5 Disposition Summary: 01/07/24 09:57 Discharge Ordered Notes: Location: Home rn Problem: new rn Symptoms: have improved rn Condition: Stable rn Diagnosis - Calculus of ureter rn Followup: rn - With: Private Physician - When: As needed - Reason: Recheck today's complaints, Re-evaluation by your physician Discharge Instructions: - Discharge Summary Sheet rn - Kidney Stones rn - Renal Colic rn - Dietary Guidelines to Help Prevent Kidney Stones rn Forms: - Medication Reconciliation Form rn - Thank You Letter rn - Antibiotic afternoon nanny - Prescription Opioid Use rn - Patient Portal Instructions rn - Leadership Thank You Letter rn Prescriptions: - ondansetron 4 mg Oral Tablet,disintegrating - take 1 tablet ORAL route every 8 hours As needed; 10 tablet; Refills: 0, rn Product Selection Permitted - Cipro 500 mg Oral Tablet - take 1 tablet ORAL route every 12 hours for 7 days; 14 tablet; Refills: 0, rn Product Selection Permitted - Tramadol 50 mg Oral Tablet - take 1 tablet ORAL route every 8 hours as needed; 12 tablet; Refills: 0, rn Product Selection Permitted Signatures: Dispatcher [employer] Sudhir Witt MD MD rn Waits, Jodi RN RN jw7 Konstantin Guzman RN RN rs5 Robert Wing MD MD sp4 Cem Hall RN RN as9
[2024-01-07 10:47] VITALS: BP 120/81; TEMP 98.3; O2SAT 99
== END ==
LOC: ER 05:57
DX: N20.1 Calculus of ureter (principal)
CPT/HCPCS: 36415; 74177; 80053; 81001; 83690; 84443; 85025; 86140; J2270; J2405; J3475; J7030; Q9967